=== PATIENT | female | born 1940 | race Caucasian/White ===

== ENCOUNTER 2019-08-13 17:59 | Outpatient (CLI) | payer MEDICARE, MEDICAID | END 2019-08-13 18:00 | disposition critical access hospital (66) | LOC: EMS 17:59 | PROVIDERS: ATTEND Surgery | DX: S09.90XA Unspecified injury of head, initial encounter (principal); X58.XXXA Exposure to other specified factors, initial encounter; Y92.099 Unspecified place in other non-institutional residence as the place of occurrence of the external cause | CPT/HCPCS: A0425; A0429 ==

== ENCOUNTER 2019-08-13 18:17 | Emergency (ER) | payer MEDICARE, MEDICAID ==
[2019-08-13 18:35] VITALS: BP 143/71
--- NOTE | 2019-08-13 18:48 | ED Physician Documentation ---
History of Present Illness - Stated complaint Stated Complaint: GLF - Chief complaint Chief Complaint: Trauma Hd/Nk - History obtained from History obtained from: Other ([facility]) - History of Present Illness Timing: Prior to arrival, Unknown - Additonal information Additional information: 79-year-old female presents to the emergency department from her care facility after the staff noticed today that she has bruising around her left eye and a very large scalp hematoma. Patient has a history of dementia. At baseline she is often nonsensical.It is unknown when patient developed the facial trauma. In review of the chart patient appears to be a DNR with comfort care measures only.Patient is not anticoagulated. Her most significant medications include loperamide and Seroquel only. History is difficult to elicit from the patient. She is placed in the ED hallway in a chair as she wanders without supervision. Review of Systems Unable to obtain: Other (Review of systems difficult to obtain. History obtained from care facility notes which indicate an unwitnessed fall as evidenced by scalp hematoma and left periorbital bruising. Patient is non- participatory in ROS secondary to dementia) Skin: reports: Other (left scalp hematoma; left carmita-ocular bruising) Endocrine: reports: Other (baselien dementia) PD PAST MEDICAL HISTORY - Allergies Allergies/Adverse Reactions: Allergies Allergy/AdvReac Type Severity Reaction Status Date / Time codeine Allergy Unknown Verified 08/13/19 18:36 PD ED PE EXPANDED - General General: Alert, No acute distress, Other (in wheel chair in ED hallway) - HEENT HEENT: PERRL, Ears normal (No hemotympanum. No fluid draining from either ear canal. No fluid draining from the nares), Other (Large left parietal scalp hematoma 4 x 3 cm.Ecchymosis surrounding the left orbital socket. The patient cannot participate in gaze follow she does not have appear to have ocular entrapment. No tenderness elicited with mild palpation of the orbital frame.) - Neck Neck: Other (moves neck normally in all planes) - Cardiac Cardiac: Regular Rate, Radial strong equal - Respiratory Respiratory: Clear to ausultation clotilde. No: Distress, Labored - Abdomen Abdomen: No: Tender to palpation - Derm Derm: Normal color, Warm and dry, Other (large hematoma left parietal scalo; bruising left orbit of eye) - Neuro Neuro: Confused, Normal motor (Demented at baseline. Gross motor movements of the arms and legs appear intact. Air [place] Driller equal bilaterally.No facial asymmetry or droop. Speech is clear. Patient cannot participate in the cerebellar or cerebral exam.) - GCS Eye Opening: Spontaneous Motor: Obeys Commands Verbal: Confused Total: 14 Results - Vitals Vitals: Vital Signs - 24 hr 08/13/19 18:19 Temperature 36.3 C L Heart Rate 73 Respiratory 18 Rate Blood Pressure 143/71 H O2 Saturation 98 Oxygen O2 Source Room air - Rads (name of study) CT head w/o Radiology: Final report received (No acute intracranial findings. Large left frontal subgaleal hematoma without underlying calvarial abnormality. Minimally displaced fracture of the left medial orbital wall with trace adjacent hematoma.) PD MEDICAL DECISION MAKING - ED course Complexity details: reviewed old records, reviewed results ED course: 79-year-old female presents to the emergency department for evaluation of a scalp and facial hematoma following a likely unwitnessed fall at her care fa [facility]. - Patient is DNR comfort care measures only. - Head CT Shows a large left frontal subgaleal hematoma without underlying calvarial allergy. There is a very minimally displaced fracture of the left medial orbital wall with trace adjacent hematoma.No intraconal or intra-orbital hematoma. - Though there is a minimally displaced orbital fracture she shows no signs of ocular entrapment. Given patient's age DNR and comfort status it is unlikely that anybody would attempt any surgical correction of this minimal displacement. - Patient will be transported back to [facility] via BLS. In reviewing chart notes and the notes from [place] patient does appear to be at her baseline mentation. Her vitals have been stable. Departure - Departure Disposition: 01 Home, Self Care Clinical Impression: Subgaleal hemorrhage Orbital fracture Qualifiers: Encounter type: initial encounter Fracture type: closed Qualified Code(s): S02.85XA - Fracture of orbit, unspecified, initial encounter for closed fracture Fall Qualifiers: Encounter type: initial encounter Qualified Code(s): W19.XXXA - Unspecified fall, initial encounter Condition: Stable Instructions: ED Head Injury Closed Ch Comments: The CT of her head shows no acute intracranial findings. There is a large subgaleal hematoma. This will simply resolve with time. Please place cool compress on her head to help reduce swelling. The CT also showed a very minimally displaced left medial orbital wall fracture. However this is too small for any surgical intervention. It also does not look like Patricia has any entrapment of her eye movement. Please continue to monitor her closely over the next 24 to 72 hours. If she becomes confused, agitated, has fevers, then return to the emergency department for further evaluation.
--- NOTE | 2019-08-13 19:33 | CT Report ---
PROCEDURE: HEAD WO INDICATIONS: unwitness fall with ocular bruising and scalp shawanda TECHNIQUE: Noncontrast 4.5 mm thick angled axial sections acquired from the foramen magnum to the vertex. For r adiation dose reduction, the following was used: automated exposure control, adjustment of mA and/or kV according to patient size. COMPARISON: None. FINDINGS: Image quality: Motion artifact limits evaluation. CSF spaces: Basal cisterns are patent. No extra-axial fluid collections. Ventricles are normal in size and shape. Brain: No midline shift. No intracranial masses or hemorrhage. Asif-white matter interface is norm al. Skull and face: There is a large subgaleal hematoma over the left frontal bone. The underlying christian rium is intact. There is likely a minimally displaced fracture through the medial orbital wall (serie s 4/image 4). A small hematoma may be present in this region. No intraconal or intraorbital hematoma. A small osteoma is present at the vertex. Sinuses: Visualized sinuses and mastoids are clear. IMPRESSION: 1. No acute intracranial findings. 2. Minimally displaced fracture of the left medial orbital wall with trace adjacent hematoma. No intr aconal or intraorbital hematoma. 3. Large left frontal subgaleal hematoma without underlying calvarial abnormality. 4. Findings likely associated with chronic microvascular ischemic changes. Reviewed by: Rahel Bui MD on 08/13/2019 7:32 PM PDT Approved by: aRhel Bui MD on 08/13/2019 7:32 PM PDT Station ID: [id number]
== END 2019-08-13 20:31 | disposition home or self-care (01) ==
LOC: ED 18:17
DX: S06.300A Unspecified focal traumatic brain injury without loss of consciousness, initial encounter (principal); S02.832A Fracture of medial orbital wall, left side, initial encounter for closed fracture; W18.30XA Fall on same level, unspecified, initial encounter; Y92.129 Unspecified place in nursing home as the place of occurrence of the external cause; F03.90 Unspecified dementia, unspecified severity, without behavioral disturbance, psychotic disturbance, mood disturbance, and anxiety; Z91.83 Wandering in diseases classified elsewhere; Z66 Do not resuscitate
CPT/HCPCS: 70450; 99281; 99284

== ENCOUNTER 2019-08-13 20:16 | Outpatient (CLI) | payer MEDICARE, MEDICAID | END 2019-08-13 20:17 | disposition home or self-care (01) | LOC: EMS 20:16 | PROVIDERS: ATTEND Surgery | DX: S02.85XA Fracture of orbit, unspecified, initial encounter for closed fracture (principal); H57.89 Other specified disorders of eye and adnexa; R41.0 Disorientation, unspecified; W18.30XA Fall on same level, unspecified, initial encounter | CPT/HCPCS: A0425; A0429 ==

== ENCOUNTER 2019-10-11 00:25 | Outpatient (CLI) | payer MEDICARE, MEDICAID | END 2019-10-11 00:26 | disposition critical access hospital (66) | LOC: EMS 00:25 | PROVIDERS: ATTEND Surgery | DX: M25.511 Pain in right shoulder (principal); W07.XXXA Fall from chair, initial encounter; Y92.099 Unspecified place in other non-institutional residence as the place of occurrence of the external cause | CPT/HCPCS: A0425; A0429 ==

== ENCOUNTER 2019-10-11 00:42 | Emergency (ER) | payer MEDICARE, MEDICAID ==
--- NOTE | 2019-10-11 00:38 | ED Physician Documentation ---
History of Present Illness - Stated complaint Stated Complaint: GLF - History obtained from History obtained from: EMS - Additonal information Additional information: Patient is a 79-year-old female with baseline dementia and Parkinson's is a DNR and comfort care only tonight she was sitting in her chair and she had a witnessed fall where she landed on her right shoulder without injury to her head or neck not anticoagulated patient complains of right shoulder pain and denies any other complaints. Review of Systems Unable to obtain: Dementia PD PAST MEDICAL HISTORY - Allergies Allergies/Adverse Reactions: Allergies Allergy/AdvReac Type Severity Reaction Status Date / Time codeine Allergy Unknown Verified 10/11/19 00:49 PD ED PE NORMAL - Vitals Vital signs reviewed: Yes - General General: No acute distress, Well developed/nourished, Other (Pleasantly demented 79-year-old female in no apparent distress) - HEENT HEENT: PERRL - Neck Neck: Supple, no meningeal sign - Cardiac Cardiac: RRR, No murmur - Respiratory Respiratory: Clear bilaterally - Abdomen Abdomen: Normal bowel sounds, Soft, Non tender, Non distended - Derm Derm: Warm and dry - Extremities Extremities: No deformity, Other (Tenderness over the right proximal shoulder & distal clavicle. no gross deformity negative sulcus sign compartments are soft neurovascularly intact radian, median ulnar motor and sensory exam are intact. Strength is 5 out of 5 able to flex and extend at the shoulder joint) - Neuro Neuro: Other (No new gross neurological deficit no facial droop no unilateral weakness.) - Psych Psych: Normal mood, Normal affect Results - Vitals Vitals: Vital Signs - 24 hr 10/11/19 00:49 Temperature 36.4 C L Heart Rate 70 Respiratory 18 Rate Blood Pressure 137/73 H O2 Saturation 98 Oxygen O2 Source Room air PD MEDICAL DECISION MAKING - ED course Complexity details: considered differential (clavicle fracture) Departure - Departure Disposition: 01 Home, Self Care Clinical Impression: Right clavicle fracture Qualifiers: Encounter type: initial encounter Clavicle location: lateral end Fracture type: closed Fracture alignment: displaced Qualified Code(s): S42.031A - Displaced fracture of lateral end of right clavicle, initial encounter for closed fracture Condition: Stable Instructions: ED Fx Clavicle Follow-Up: Oziel Haro MD [Provider Admit Priv/Credential] - 08/31/20 Comments: keep right arm in sling. follow up with your pcp and ortho next week. ice as needed. take ibuprofen or tylenol as needed for pain.
[2019-10-11 01:52] VITALS: BP 130/61
--- NOTE | 2019-10-11 08:10 | XRAY Report ---
PROCEDURE: Shoulder 3 View RT INDICATIONS: fall shoulder pain TECHNIQUE: 4 views of the shoulder were acquired. COMPARISON: None. FINDINGS: Bones: Distal right clavicular fracture with apex superior angulation of the distal fracture fragment . Glenohumeral alignment appears intact. No suspicious bony lesions. Visualized ribs appear intact. Soft tissues: No suspicious soft tissue calcifications. IMPRESSION: Distal right clavicular fracture. No significant discrepancy with initial interpretation by overnight radiologist. Reviewed by: Deon Uamña MD on 10/11/2019 8:09 AM PDT Approved by: Deon Umaña MD on 10/11/2019 8:09 AM PDT Station ID: [id number]
--- NOTE | 2019-10-11 08:11 | XRAY Report ---
PROCEDURE: Humerus RT INDICATIONS: right arm pain TECHNIQUE: AP and lateral views of the humerus were acquired. COMPARISON: None. FINDINGS: Bones: Distal right clavicle fracture. No fractures or dislocations of the right humerus. No suspic ious bony lesions. Soft tissues: No suspicious soft tissue calcifications. IMPRESSION: Distal right clavicular fracture. Right humerus without acute osseous abnormalities. Reviewed by: Deon Umaña MD on 10/11/2019 8:10 AM PDT Approved by: Deon Umaña MD on 10/11/2019 8:10 AM PDT Station ID: [id number]
== END 2019-10-11 02:26 | disposition home or self-care (01) ==
LOC: EDUNIT# → ED 00:42
DX: S42.031A Displaced fracture of lateral end of right clavicle, initial encounter for closed fracture (principal); W07.XXXA Fall from chair, initial encounter; Y92.129 Unspecified place in nursing home as the place of occurrence of the external cause; G20 Parkinson's disease; F02.80 Dementia in other diseases classified elsewhere, unspecified severity, without behavioral disturbance, psychotic disturbance, mood disturbance, and anxiety; Z66 Do not resuscitate
CPT/HCPCS: 99281; 99283

== ENCOUNTER 2021-09-13 16:34 | Emergency (ER) | payer MEDICARE, MEDICAID ==
[2021-09-13] MEDS ORDERED: TETANUS/DIPHTHERIA/PERTUSSIS 0.5 ML SYRINGE IM ONE (16:40)
--- NOTE | 2021-09-13 16:41 | ED Physician Documentation ---
History of Present Illness - Stated complaint Stated Complaint: GLF/BUMP - History obtained from History obtained from: Patient, EMS - Additonal information Additional information: This is a demented 81-year-old woman brought in by ambulance as she fell out of bed this morning. She lives at a memory care facility and reportedly fell out of bed between 4 and 5 AM sustaining a lack on the vertex. She is comfort care only. Patient is unable to state if she has any complaints. She does seem happy though and has a stuffed cat in her arms. Review of Systems Unable to obtain: Confused PD PAST MEDICAL HISTORY - Past Medical History Neuro: Dementia - Past Surgical History Past Surgical History: No - Present Medications Home Medications: Ambulatory Orders Medication Instructions Recorded Confirmed Acetaminophen [Tylenol] 650 mg PO Q6H PRN 09/13/21 09/13/21 Bisacodyl Supp [Dulcolax Supp] 10 mg DE DAILY PRN 09/13/21 09/13/21 Loperamide [Imodium] 2 mg PO QID PRN 09/13/21 09/13/21 Magnesium Hydroxide [Milk of 30 ml PO DAILY PRN 09/13/21 09/13/21 Magnesia] QUEtiapine [SEROquel] 25 mg PO BID 09/13/21 09/13/21 QUEtiapine [SEROquel] 25 mg PO DAILY PRN 09/13/21 09/13/21 Sennosides/Docusate Sodium [Senna 1 each PO DAILY 09/13/21 09/13/21 Plus 8.6-50 mg Softgel] - Allergies Allergies/Adverse Reactions: Allergies Allergy/AdvReac Type Severity Reaction Status Date / Time codeine Allergy Unknown Verified 10/11/19 00:49 - Social History Does the pt smoke?: No Smoking Status: Never smoker Does the pt drink ETOH?: No Does the pt have substance abuse?: No - Immunizations Immunizations are current?: Yes - POLST Patient has POLST: No PD ED PE NORMAL - Vitals Vital signs reviewed: Yes - General General: Other (Alert and oriented to person but not place or time) - HEENT HEENT: Other (Already healing laceration to the right side of the vertex of the scalp. Note made that the left lens is opacified and that pupil is minimally reactive. Looks like a chronic process.) - Neck Neck: Supple, no meningeal sign, No bony TTP - Neuro Eye Opening: Spontaneous Motor: Obeys Commands Verbal: Confused GCS Score: 14 Results - Vitals Vitals: Vital Signs - 24 hr 09/13/21 09/13/21 16:37 18:32 Temperature 37 C Heart Rate 71 59 L Respiratory 14 18 Rate Blood Pressure 145/83 H 122/102 H O2 Saturation 97 99 Oxygen O2 Source Room air PD MEDICAL DECISION MAKING - ED course ED course: 81-year-old with dementia fell last night and hit her head. She has a laceration on the top of the head. She is comfort care only but brought in for evaluation. CT imaging of the head and neck was without acute change, the laceration is already healing and does not require specific therapy. Departure - Departure Disposition: 01 Home, Self Care Clinical Impression: Head injury Qualifiers: Encounter type: initial encounter Qualified Code(s): S09.90XA - Unspecified injury of head, initial encounter Dementia Qualifiers: Dementia type: unspecified type Dementia behavioral disturbance: without behavioral disturbance Qualified Code(s): F03.90 - Unspecified dementia without behavioral disturbance Scalp laceration Qualifiers: Encounter type: initial encounter Qualified Code(s): S01.01XA - Laceration without foreign body of scalp, initial encounter Condition: Good Record reviewed to determine appropriate education?: Yes Instructions: ED Dementia Caregiver Support, ED Head Injury Closed Comments: She was seen for scalp laceration, that laceration is small and already healing. Soap and water and routine cleansing is fine without other specific wound care is acceptable. CT of the head and C-spine were negative. Return for new or worsening symptoms.
[2021-09-13] MEDS ORDERED: MIDAZOLAM 2 MG/2 ML VIAL IM STA (17:52)
[2021-09-13 18:32] VITALS: BP 122/102
--- NOTE | 2021-09-13 18:40 | CT Report ---
PROCEDURE: HEAD WO INDICATIONS: head injury TECHNIQUE: Noncontrast 4.5 mm thick angled axial sections acquired from the foramen magnum to the vertex. For r adiation dose reduction, the following was used: automated exposure control, adjustment of mA and/or kV according to patient size. COMPARISON: 08/13/2019. Correlation is also made with the coming cervical spine CT, 09/13/2021. FINDINGS: Image quality: Excellent. CSF spaces: Basal cisterns are patent. No extra-axial fluid collections. Ventricles are normal in size and shape. Brain: No midline shift. No intracranial masses or hemorrhage. Asif-white matter interface is norm al. Age-appropriate brain parenchymal volume loss and chronic small vessel ischemic change can be se en. Skull and face: Calvarium and visualized facial bones are intact, without suspicious lesions. 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 Sinuses: Visualized sinuses and mastoids are clear. IMPRESSION: No intracranial hemorrhage is seen. No significant intracranial abnormality is seen. Reviewed by: Ata Almaraz MD on 09/13/2021 6:38 PM PDT Approved by: Ata Almaraz MD on 09/13/2021 6:38 PM PDT Station ID: [id number]
--- NOTE | 2021-09-13 18:41 | CT Report ---
PROCEDURE: CERVICAL SPINE WO INDICATIONS: head injury TECHNIQUE: Noncontrast 3 mm thick sections acquired from the skull base to the T4 level. Sagittal and coronal r eformats were then constructed. For radiation dose reduction, the following was used: automated exp osure control, adjustment of mA and/or kV according to patient size. COMPARISON: Correlation is made with the accompanying head CT, 09/13/2021. FINDINGS: Image quality: Excellent. Bones: No fractures or dislocations. Visualized superior ribs are intact. Degenerative changes are seen throughout, with at least moderate disc space narrowing seen at C3-C4, C4-C5, C5-C6, C6-C7, and within the visualized upper cervical spine. Soft tissues: Prevertebral soft tissues are normal in thickness. No paravertebral hematomas. No ap ical pneumothoraces. Emphysematous changes can be seen at the lung apices. IMPRESSION: No displaced fracture can be seen. Relatively prominent degenerative changes are seen. Reviewed by: Ata Almaraz MD on 09/13/2021 6:39 PM PDT Approved by: Ata Almaraz MD on 09/13/2021 6:39 PM PDT Station ID: [id number]
== END 2021-09-13 19:40 | disposition home or self-care (01) ==
LOC: EDUNIT# → ED 16:34
DX: S01.01XA Laceration without foreign body of scalp, initial encounter (principal); W06.XXXA Fall from bed, initial encounter; Y92.099 Unspecified place in other non-institutional residence as the place of occurrence of the external cause; F03.90 Unspecified dementia, unspecified severity, without behavioral disturbance, psychotic disturbance, mood disturbance, and anxiety; Z23 Encounter for immunization; Z71.85 Encounter for immunization safety counseling
CPT/HCPCS: 90471; 96372; 99281; 99284

== ENCOUNTER 2022-05-19 06:52 | Outpatient (CLI) | payer MEDICARE, MEDICAID | END 2022-05-19 06:53 | disposition left against medical advice (07) | LOC: EMS 06:52 | DX: R62.7 Adult failure to thrive (principal); I95.9 Hypotension, unspecified; R63.8 Other symptoms and signs concerning food and fluid intake; R46.4 Slowness and poor responsiveness; R53.83 Other fatigue ==

== ENCOUNTER 2022-05-20 12:28 | Outpatient (CLI) | payer MEDICARE, MEDICAID | END 2022-05-20 12:29 | disposition critical access hospital (66) | LOC: EMS 12:28 | DX: R40.0 Somnolence (principal); R39.89 Other symptoms and signs involving the genitourinary system; R63.8 Other symptoms and signs concerning food and fluid intake; R50.9 Fever, unspecified | CPT/HCPCS: A0425; A0427 ==

== ENCOUNTER 2022-05-20 12:43 | Inpatient (IN) | payer MEDICARE, MEDICAID ==
[2022-05-20] MEDS ORDERED: ALBUTEROL NEB 2.5 MG/3 ML INH STA (12:57)
[2022-05-20] MEDS ORDERED: ACETAMINOPHEN 325 MG TABLET PO STA (13:01)
[2022-05-20] MEDS ORDERED: SODIUM CHLORIDE 0.9% 1,000 ML IV STA (13:01)
[2022-05-20 13:19] LABS: BILIRUBIN,URINE NEGATIVE (NEGATIVE); CLARITY,URINE SL. CLOUDY (CLEAR); GLUCOSE, URINE (UA) NEGATIVE (NEGATIVE); KETONES,URINE (UA) NEGATIVE (NEGATIVE); LEUKOCYTE ESTERASE, URINE TRACE (NEGATIVE); NITRITE,URINE POSITIVE (NEGATIVE); OCCULT BLOOD,URINE SMALL (NEGATIVE); PH,URINE 5.5 PH (5.0-7.5); PROTEIN,URINE TRACE mg/dL (NEGATIVE); UROBILINOGEN,URINE 0.2 (NORMAL) E.U./dL (NORMAL)
[2022-05-20 13:25] LABS: BACTERIA,URINE Moderate /HPF (None Seen); SQUAMOUS EPITHELIAL CELL,UR RARE Squamous (<= Few)
--- NOTE | 2022-05-20 13:28 | XRAY Report ---
PROCEDURE: Chest 1 View X-Ray INDICATIONS: chest pain TECHNIQUE: One view of the chest was acquired. COMPARISON: None. FINDINGS: Surgical changes and devices: None. Lungs and pleura: No pleural effusions or pneumothorax. Mild interstitial pulmonary edema. Mediastinum: Mediastinal contours appear normal. Mild cardiomegaly. Bones and chest wall: No suspicious bony lesions. Overlying soft tissues appear unremarkable. IMPRESSION: Mild congestive heart failure exacerbation. Reviewed by: John Rao MD on 05/20/2022 1:26 PM PDT Approved by: John Rao MD on 05/20/2022 1:26 PM PDT Station ID: [id number]
[2022-05-20 13:31] LABS: EOSINOPHILS % (AUTO) 0.1 %; HCT - HEMATOCRIT 39.5 % (37.0-47.0); HGB - HEMOGLOBIN 12.9 g/dL (12.0-16.0); LYMPHOCYTES % (AUTO) 1.4 %; MEAN CORPUSCULAR HEMOGLOBIN 31.2 pg (27.0-31.0); MEAN CORPUSCULAR HGB CONC 32.7 g/dL (32.0-36.0); MEAN CORPUSCULAR VOLUME 95.6 fL (81.0-99.0); MEAN PLATELET VOLUME 9.8 fL (7.9-10.8); MONOCYTES % (AUTO) 1.8 %; NEUTROPHILS % (AUTO) 95.2 %; PLT - PLATELET COUNT 77 10^3/uL (130-450); RED BLOOD COUNT 4.13 10^6/uL (4.20-5.40); RED CELL DISTRIBUTION WIDTH 13.3 % (12.0-15.0); WHITE BLOOD COUNT 8.4 x10^3/uL (4.8-10.8)
[2022-05-20 13:34] LABS: ABNORMAL LYMPHS % (MANUAL) 0 %
[2022-05-20 13:42] LABS: ALBUMIN/GLOBULIN RATIO 0.9 (1.0-2.2); BILIRUBIN,TOTAL 0.7 mg/dL (0.2-1.0); CREATININE 1.8 mg/dL (0.4-1.0); POTASSIUM 3.6 mmol/L (3.5-5.0); TOTAL PROTEIN 6.4 g/dL (6.7-8.2)
[2022-05-20] MEDS ORDERED: ACETAMINOPHEN 1,000 MG/100 ML 1,000 MG/100 ML BAG IV ONE (13:51)
--- NOTE | 2022-05-20 13:51 | ED Physician Documentation ---
PD HPI ALTERED MENTAL STATUS - Stated complaint Stated Complaint: FEVER - Chief complaint Chief Complaint: Fever - History obtained from History obtained from: Patient, EMS, Caregiver - History of Present Illness Timing - onset: How many days ago (2-3) Timing - duration: Days (2) Timing - details: Gradual onset, Still present Quality / character: Less responsive (Report from EMS is [facility] states she is typically ambulatory and interacts. Patient has been less responsive and energetic and not wanting to eat since 2-3 days. Concern for infection. Onset fevers last night. Caregivers called the family who did want the patient brought in.), Confused (dementia at baseline). No: Agitated, Combative Associated symptoms: Fever Contributing factors: Recent illness (presume infection with fevers onset last night.). No: Recent med change Basline status: Ambulatory, Confused (mostly forgetful per daughter.), Disoriented, residential facility. No: Diminished alertness Treatment VEHICLE TECHNICIAN: Accucheck Similar symptoms before: Has not had sx before Review of Systems Unable to obtain: AMS, Dementia, Other (info from care facility through EMS.) Constitutional: reports: Fever Respiratory: denies: Cough GI: denies: Vomiting, Diarrhea : reports: Incontinent (chronic) Neurologic: reports: Generalized weakness, Altered mental status (less interactive and not wanting to eat/drink today.) PD PAST MEDICAL HISTORY - Past Medical History Past Medical History: Yes Cardiovascular: None Respiratory: None Neuro: Dementia Endocrine/Autoimmune: None - Past Surgical History Past Surgical History: No - Present Medications Home Medications: Ambulatory Orders Medication Instructions Recorded Confirmed Acetaminophen [Tylenol] 650 mg PO Q6H PRN 09/13/21 05/20/22 Bisacodyl Supp [Dulcolax Supp] 10 mg [place] DAILY PRN 09/13/21 05/20/22 Loperamide [Imodium] 2 mg PO QID PRN 09/13/21 09/13/21 Magnesium Hydroxide [Milk of 30 ml PO DAILY PRN 09/13/21 09/13/21 Magnesia] QUEtiapine [SEROquel] 25 mg PO BID 09/13/21 05/20/22 QUEtiapine [SEROquel] 25 mg PO DAILY PRN 09/13/21 09/13/21 Mag Hydrox/Al Hydrox/Simeth 30 ml PO Q4H PRN 05/20/22 05/20/22 [Mylanta Plus] Senna [Senokot] 17.2 mg PO DAILY 05/20/22 05/20/22 Sennosides [Senna] 8.6 mg PO DAILY PM 05/20/22 05/20/22 acetaZOLAMIDE [Diamox] 250 mg PO TID 05/20/22 05/20/22 - Allergies Allergies/Adverse Reactions: Allergies Allergy/AdvReac Type Severity Reaction Status Date / Time codeine Allergy Unknown Verified 05/20/22 12:58 - Living Situation Living Situation: reports: Alone, Other (family in the area are estranged and don't visit patient very much.) Living Arrangement: reports: [facility] - Social History Does the pt smoke?: No Smoking Status: Never smoker Does the pt drink ETOH?: No Does the pt have substance abuse?: No - Immunizations Immunizations are current?: Yes - POLST Patient has POLST: No PD ED PE NORMAL - Vitals Vital signs reviewed: Yes - General General: Well developed/nourished, Other (rather blank look when asked questions. not responding verbally. Looking around with head moving readily.) - HEENT HEENT: Atraumatic - Neck Neck: Supple, no meningeal sign, No adenopathy - Cardiac Cardiac: No murmur. No: RRR (regular but tachycardic) - Respiratory Respiratory: No respiratory distress, Other (has diffuse exp wheezing noted. No crackles. ) - Abdomen Abdomen: Soft, Non tender, Non distended - Rectal Rectal: Other (patient wearing depends. Brown stool in depends. Does not appear melanotic. no obvious rash. nursing will clean up and advise me. ) - Derm Derm: Normal color, Warm and dry - Extremities Extremities: No edema, No calf tenderness / cord - Neuro Neuro: No motor deficit, No sensory deficit (responds to tactile touch on extremities. ) Results - Vitals Vitals: Vital Signs - 24 hr 05/20/22 05/20/22 05/20/22 12:53 14:17 17:00 Temperature 37.9 C 36.5 C Heart Rate 110 H 105 H 114 H Respiratory 20 22 20 Rate Blood Pressure 124/89 H 116/80 105/72 O2 Saturation 91 L 91 L 93 If not protocol 3 : Oxygen Flow, liters/minute 05/20/22 18:28 Temperature Heart Rate 102 H Respiratory 19 Rate Blood Pressure 97/64 O2 Saturation 93 If not protocol 3 : Oxygen Flow, liters/minute Oxygen O2 Source Nasal cannula - Labs Labs: Laboratory Tests 05/20/22 05/20/22 05/20/22 13:08 13:10 13:23 WBC 8.4 RBC 4.13 L Hgb 12.9 Hct 39.5 MCV 95.6 MCH 31.2 H MCHC 32.7 RDW 13.3 Plt Count 77 L MPV 9.8 Neut # (Auto) Not Reportable Lymph # (Auto) Not Reportable [place] # (Auto) Not Reportable Eos # (Auto) Not Reportable Baso # (Auto) Not Reportable Absolute Nucleated RBC Not Reportable Total Counted 100 Band Neuts % (Manual) 9 Abnorm Lymph % (Manual) 0 Metamyelocytes % 2 H Nucleated RBC % Not Reportable Neutrophils # (Manual) 7.1 H Lymphocytes # (Manual) 0.2 L Monocytes # (Manual) 0.8 Eosinophils # (Manual) 0.1 Basophils # (Manual) 0.0 Differential Comment MANUAL DIFFERENTIAL Platelet Estimate DECREASED (<130,000) Platelet Morphology NORMAL APPEARANCE RBC Morph Micro Appear NORMAL APPEARANCE Sodium Potassium Chloride Carbon Dioxide Anion Gap BUN Creatinine Estimated GFR (MDRD) Glucose Lactic Acid Calcium Total Bilirubin AST ALT Alkaline Phosphatase B-Natriuretic Peptide Total Protein Albumin Globulin Albumin/Globulin Ratio Lipase Urine Color YELLOW Urine Clarity SL. CLOUDY Urine pH 5.5 Ur Specific [place] 1.020 Urine Protein TRACE Urine Glucose (UA) NEGATIVE Urine Ketones NEGATIVE Urine Occult Blood SMALL H Urine Nitrite POSITIVE H Urine Bilirubin NEGATIVE Urine Urobilinogen 0.2 (NORMAL) Ur Leukocyte Esterase TRACE H Urine RBC 11-25 H Urine WBC 11-25 H Ur Squamous Epith Cells RARE Squamous Urine Bacteria Moderate H Ur Microscopic Review INDICATED Urine Culture Comments INDICATED Nasal Adenovirus (PCR) NOT DETECTED Nasal B. parapertussis DNA (PCR) NOT DETECTED Nasal Coronavir 229E PCR NOT DETECTED Nasal Coronavir HKU1 PCR NOT DETECTED Nasal Coronavir NL63 PCR NOT DETECTED Nasal Coronavir OC43 PCR NOT DETECTED Nasal Enterovir/Rhinovir PCR NOT DETECTED Nasal Influenza B PCR NOT DETECTED Nasal Influenza A PCR NOT DETECTED Nasal Parainfluen 1 PCR NOT DETECTED Nasal Parainfluen 2 PCR NOT DETECTED Nasal Parainfluen 3 PCR NOT DETECTED Nasal Parainfluen 4 PCR NOT DETECTED Nasal RSV (PCR) NOT DETECTED Nasal B.pertussis DNA PCR NOT DETECTED Nasal C.pneumoniae (PCR) NOT DETECTED Clement Human Metapneumo PCR NOT DETECTED Nasal M.pneumoniae (PCR) NOT DETECTED Nasal SARS-CoV-2 (PCR) NOT DETECTED 05/20/22 05/20/22 05/20/22 13:23 13:23 13:23 WBC RBC Hgb Hct MCV MCH MCHC RDW Plt Count MPV Neut # (Auto) Lymph # (Auto) [place] # (Auto) Eos # (Auto) Baso # (Auto) Absolute Nucleated RBC Total Counted Band Neuts % (Manual) Abnorm Lymph % (Manual) Metamyelocytes % Nucleated RBC % Neutrophils # (Manual) Lymphocytes # (Manual) Monocytes # (Manual) Eosinophils # (Manual) Basophils # (Manual) Differential Comment Platelet Estimate Platelet Morphology RBC Morph Micro Appear Sodium 143 Potassium 3.6 Chloride 113 H Carbon Dioxide 22 Anion Gap 8.0 BUN 59 H Creatinine 1.8 H Estimated GFR (MDRD) 27 L Glucose 85 Lactic Acid 1.9 Calcium 8.0 L Total Bilirubin 0.7 AST 72 H ALT 49 Alkaline Phosphatase 177 H B-Natriuretic Peptide 348 H Total Protein 6.4 L Albumin 3.0 L Globulin 3.4 Albumin/Globulin Ratio 0.9 L Lipase 22 Urine Color Urine Clarity Urine pH Ur Specific [place] Urine Protein Urine Glucose (UA) Urine Ketones Urine Occult Blood Urine Nitrite Urine Bilirubin Urine Urobilinogen Ur Leukocyte Esterase Urine RBC Urine WBC Ur Squamous Epith Cells Urine Bacteria Ur Microscopic Review Urine Culture Comments Nasal Adenovirus (PCR) Nasal B. parapertussis DNA (PCR) Nasal Coronavir 229E PCR Nasal Coronavir HKU1 PCR Nasal Coronavir NL63 PCR Nasal Coronavir OC43 PCR Nasal Enterovir/Rhinovir PCR Nasal Influenza B PCR Nasal Influenza A PCR Nasal Parainfluen 1 PCR Nasal Parainfluen 2 PCR Nasal Parainfluen 3 PCR Nasal Parainfluen 4 PCR Nasal RSV (PCR) Nasal B.pertussis DNA PCR Nasal C.pneumoniae (PCR) Clement Human Metapneumo PCR Nasal M.pneumoniae (PCR) Nasal SARS-CoV-2 (PCR) - Rads (name of study) chest xray Relevant Findings:: Prelim report reviewed, EMP independent interpretation of test (no infiltrates. some vascular prominence. consider mild chf.), See rad report PD Medical Decision Making - ED course Complexity details: reviewed results, d/w family (I talked with her daughter who would like to provide fluids and antibiotics and see the improvement. Comfort focused treatment and short-term antibiotic intervention.), d/w crm consultant (I talked with the hospitalist who agrees the patient can be treated in the hospital.) Reviewed Lab Results: The patient's urine is positive for urinary tract infection with positive nitrites and bacteria and white cells. This was a cath urine. Chest x-ray shows some diffuse interstitial vascularity but no infiltrates. White count is normal at 8. Lactate is not elevated at 1.9. Her respiratory PCR panel is negative. She does have some congestion and wheezing - consider some viral URI vs mild chf. only source verifiable for infection is UTI. Departure - Departure Disposition: ED Place in Observation Clinical Impression: AMS (altered mental status), UTI (urinary tract infection), Tachycardia Condition: Stable Record reviewed to determine appropriate education?: Yes Discharge Date/Time: 05/20/22 19:02
[2022-05-20 13:52] LABS: BAND NEUTROPHILS % (MANUAL) 9 %; DIFFERENTIAL COMMENT MANUAL DIFFERENTIAL; EOSINOPHILS # (MANUAL) 0.1 10^3/uL (0-0.7); LYMPHOCYTES # (MANUAL) 0.2 10^3/uL (1.5-3.5); LYMPHOCYTES % (MANUAL) 2 %; METAMYELOCYTES % (MANUAL) 2 %; MONOCYTES # (MANUAL) 0.8 10^3/uL (0.0-1.0); NEUTROPHILS # (MANUAL) 7.1 10^3/uL (1.5-6.6); PLATELET ESTIMATE, MANUAL DECREASED (<130,000) (NORMAL); PLATELET MORPHOLOGY NORMAL APPEARANCE (NORMAL); RBC MORPHOLOGY (MULTIPLE) NORMAL APPEARANCE (NORMAL)
[2022-05-20] MEDS ORDERED: cefTRIAXone 1 GM VIAL IVP STA (13:55)
[2022-05-20 14:35] LABS: B. PARAPERTUSSIS- RESP PCR PAN NOT DETECTED; B. PERTUSSIS- RESP PCR PANEL NOT DETECTED; C. PNEUMONIAE- RESP PCR PANEL NOT DETECTED; CORONAVIRUS 229E-RESP PCR NOT DETECTED; CORONAVIRUS HKU1-RESP PCR NOT DETECTED; CORONAVIRUS NL63-RESP PCR NOT DETECTED; CORONAVIRUS OC43-RESP PCR NOT DETECTED; HUMAN METAPNEUMOVIRUS NOT DETECTED; INFLUENZA A- RESP PCR PANEL NOT DETECTED; INFLUENZA B - RESP PCR PANEL NOT DETECTED; M. PNEUMONIAE- RESP PCR PANEL NOT DETECTED; PARAINFLUENZA VIRUS 1 NOT DETECTED; PARAINFLUENZA VIRUS 2 NOT DETECTED; PARAINFLUENZA VIRUS 3 NOT DETECTED; PARAINFLUENZA VIRUS 4 NOT DETECTED; RHINOVIRUS/ENTEROVIRUS NOT DETECTED; RSV- RESP PCR PANEL NOT DETECTED; SARS-CoV-2 -RESP PCR PANEL NOT DETECTED
--- NOTE | 2022-05-20 18:28 | HISTORY & PHYSICAL EXAMINATION ---
Chief Complaint - Chief Complaint Chief Complaint: AMS and fever at a memory care Shelter History of Present Illness - Admitted From Admitted From:: ED - History Obtained From History obtained from: ED provider - History of Present Illness HPI Comment/Other: This is an 82-year-old female with a history of dementia, on Seroquel. She lives in a memory care facility. She is normally interactive and walks and is independent. For the last 2 days she has been less interactive and eating and drinking less. Last night she had a fever of 101 Fahrenheit. This morning she was much less interactive and had nothing to eat or drink and was therefore sent to the ER from the memory residential. The patient was not febrile in our ED, but was found to have tachycardia, obtundation, a left shift on her CBC and abnormal urinalysis. The ED provider spoke to the daughter who reviewed that she did want treatment for her mother with IV fluids and antibiotics. There is an up coming appointment to have the pt start being followed with Palliative Care, the daughter said. The ED provider reached out to me on the Hospitalist team and we discussed this patient. The patient will be admitted to treat sepsis from a UTI. There is no PLST in the chart. The daughter does not want aggressive measures, comfort is the goal. Therefore CODE STATUS will be DNR. History - Past Medical History Neuro: reports: Dementia MRSA Hx?: No - Family & Social History Living arrangement: Assisted living Social History Notes: According to this EMR, there is no current smoking or alcohol use - Substance History Use: Uses substance without health or social issues: NONE - POLST Patient has POLST: No Meds/Allgy - Home Medications Home Medications: Ambulatory Orders Medication Instructions Recorded Confirmed Acetaminophen [Tylenol] 650 mg PO Q6H PRN 09/13/21 05/20/22 Loperamide [Imodium] 2 mg PO QID PRN 09/13/21 05/21/22 Magnesium Hydroxide [Milk of 30 ml PO DAILY PRN 09/13/21 05/21/22 Magnesia] QUEtiapine [SEROquel] 25 mg PO BID 09/13/21 05/20/22 acetaZOLAMIDE [Diamox] 250 mg PO TID 05/20/22 05/20/22 Sennosides/Docusate Sodium [Senna 1 tab PO DAILY PRN 05/21/22 05/21/22 Plus 8.6-50 mg Tablet] - Allergies Allergies/Adverse Reactions: Allergies Allergy/AdvReac Type Severity Reaction Status Date / Time codeine Allergy Unknown Verified 05/20/22 12:58 Review of Systems - Constitutional Constitutional: reports: Weakness, Poor appetite - Neurological Neurological: reports: Memory problems, Other (More sleepy and less interactive than) - All Other Systems All Other Systems: reports: Other (ROS is only obtained from the ED provider and chart notes.) Exam - Vital Signs Vital Signs: Vital Signs x48h Temp Pulse Resp BP Pulse Ox O2 Flow Rate 05/20/22 17:00 36.5 C 114 H 20 105/72 93 3 05/20/22 14:17 105 H 22 116/80 91 L 05/20/22 12:53 37.9 C 110 H 20 124/89 H 91 L - Physical Exam General Appearance: positive: No acute distress, Lethargic (Minimally winces to a sternal rub), Other (Cachectic, has sunken eyes and temporal wasting) Eyes Bilateral: positive: No lid inflammation ENT: positive: Dry mucous membranes, Other (Skin tenting present) Neck: positive: Nml inspection, No JVD Respiratory: positive: No respiratory distress, Breath sounds nml Cardiovascular: positive: Regular rate & rhythm, No murmur Abdomen: positive: Non-tender, No distention Skin: positive: Warm, Dry, Other ((+) tenting of skin) Extremities: positive: Non-tender, No pedal edema Neurologic/Psychiatric: positive: Other (Obtunded, only winces to sternal rub) Sepsis Event Note (H) - Evaluation Current Stage of Sepsis: Sepsis Possible source of Sepsis: positive: Genitourinary - Sepsis Criteria Sepsis Criteria: Recorded Heart Rate greater than 90 bpm, Respiratory: Increasing oxygen requirements, TRANSPORTATION CONSULTANT: altered consciousness (unrelated to primary neuro pathology), Hematologic: platelets < 100,000; INR > 1.5, or a PTT>60 seconds Conclusion/Plan - Problem List (1) Sepsis Conclusion/Plan: Patient has sepsis criteria including tachycardia, low platelet count of 77, new altered mental status on top of her usual mental w/ dementia, and a urinary tract infection source is apparent Plan: We will treat with IV fluids Begin empiric IV antibiotics Await blood and urine cultures to adjust antibiotics Anticipate that her new obtundation/altered mental status will improve with hydr ation and treating the infection, otherwise will do head CT (2) UTI (urinary tract infection) Conclusion/Plan: The patient had blood culture and urine culture sent off from the ED. I reviewed her urinalysis which is very abnormal normal showing WBCs and bacteria, nitrites and leukocyte esterase Plan: We will continue with IV empiric antibiotics using ceftriaxone Await urine and blood culture results to adjust her antibiotics (3) AMS (altered mental status) Conclusion/Plan: The patient is currently obtunded. She appears in no distress and is asleep, however she does not respond to sternal rub. We have only description of her behavior from the [facility], which was that she was interactive, talking, eating before 3 days ago. Therefore this is a significant change in her mental state Plan: Anticipate that her new obtundation/altered mental status will improve with hydration and treating the infection, otherwise will do head CT (4) Tachycardia Conclusion/Plan: 50Despite having no fever documented since being in our ED, she continues to be persistently tachycardic. This may be a result of volume depletion, pain or from possibly missing heart rate-slowing medications since she was not taking in her diet for 2-1/2 days Plan: We will place on telemetry We will order any of her usual heart rate-slowing medications if she has any, once her medication list is reconciled by our pharmacy (5) Dementia Conclusion/Plan: Plan: We will resume her Seroquel We will await for pharmacy to reconcile her entire medication list (6) Cachexia Conclusion/Plan: The patient has skin tenting and sunken eyes which could be consistent with dehydration from no oral intake for 3 days but appears to have underlying cachexia There is no POLST in the chart but the daughter's discussion with the ED provider indicated that no aggressive measures should be undertaken, comfort is the goal, daughter okayed IV fluids and IV antibiotics Plan: There is already a plan to have palliative care start seeing this patient going in the direction of hospice for end-of-life. - Lab Results Fish Bones: 05/21/22 09:04 05/21/22 09:04 - Diagnostic Imaging Results Diagnostic Imaging Results: positive: Final report reviewed - Other Other Results/Comments: Attestation: The patient is expected to be discharged or transferred to another facility within 96 hours: Yes.
[2022-05-20] MEDS ORDERED: ACETAMINOPHEN 325 MG TABLET PO PRN (18:29)
[2022-05-20] MEDS ORDERED: SODIUM CHLORIDE FLUSH 0.9% 10 ML SYRINGE IVP PRN (18:29)
[2022-05-20] MEDS ORDERED: ONDANSETRON 4 MG/2 ML VIAL IVP PRN (18:29)
[2022-05-20] MEDS ORDERED: MAG HYDROX/AL HYDROX/SIMETH 30 ML UDC PO PRN (18:30)
[2022-05-20] MEDS ORDERED: BISACODYL 10 MG SUPP PR PRN (18:30)
[2022-05-20] MEDS: DEXTROSE 5%-0.9% NACL 1,000 ML IV SCH (20:23)
[2022-05-20] MEDS: QUEtiapine 25 MG TABLET PO SCH (21:36)
[2022-05-20] MEDS: SENNA 8.6 MG TABLET PO SCH (21:36)
[2022-05-20] MEDS: SODIUM CHLORIDE FLUSH 0.9% 10 ML SYRINGE IVP SCH (23:27)
[2022-05-21] MEDS: DEXTROSE 5%-0.9% NACL 1,000 ML IV SCH ×2 (06:05→17:08)
[2022-05-21] MEDS: SODIUM CHLORIDE FLUSH 0.9% 10 ML SYRINGE IVP SCH ×2 (08:23→17:22)
[2022-05-21] MEDS: QUEtiapine 25 MG TABLET PO SCH ×2 (08:28→20:06)
--- NOTE | 2022-05-21 08:48 | PROVIDER PROGRESS NOTE ---
Assessment/Plan - Problem List (1) E coli bacteremia Assessment/Plan: Today 2 of 2 blood cultures have returned showing growth and the PCR identification shows E. coli Plan: Continue with ceftriaxone but will increase the dose from 1 g daily to 2 g daily (2) Sepsis Assessment/Plan: Patient had sepsis criteria including tachycardia, low platelet count of 77, new altered mental status on top of her usual mental w/ dementia, and a urinary tract infection source is apparent. Vital signs and labs are all reviewed. Today her tachycardia has gone, but her white blood count has worsened from 8.4, up to 18.2, Platelet count has worsened from 77 down to 46, and she is still severely obtunded Plan: We will repeat a lactic acid level (which was normal yesterday at admission) and will check for DIC by ordering a fibrinogen level, to see if she has worsening sepsis Continue to treat with IV fluids Continue empiric IV antibiotics Await blood and urine cultures to adjust antibiotics Anticipate that her new obtundation/altered mental status will improve with hydration and treating the infection, otherwise will do head CT (3) UTI (urinary tract infection) Conclusion/Plan: The patient had blood culture and urine culture sent off from the ED. I reviewed her urinalysis which is very abnormal normal showing WBCs and bacteria, nitrites and leukocyte esterase Plan: We will continue with IV empiric antibiotics using ceftriaxone Await urine and blood culture results to adjust her antibiotics (4) AMS (altered mental status) Conclusion/Plan: Today she opened her eyes for her nurse when she was touched. She is still too lethargic to try a swallow screen by the RN The patient is still mostly obtunded, by my exam. She appears in no distress and is asleep, however she minimally respond to sternal rub by wincing We have only description of her behavior from the memory care center, which was that she was interactive, talking, eating before 3 days ago. Therefore this is a significant change in her mental state Plan: Anticipate that her new obtundation/altered mental status will continue improve with hydration and treating the infection, otherwise will do head CT (5) Dementia Conclusion/Plan: Plan: We will resume her Seroquel when she is able to swallow We will await for pharmacy to reconcile her entire medication list (6) Cachexia Conclusion/Plan: The patient has skin tenting and sunken eyes which could be consistent with dehydration from no oral intake for 3 days but appears to have underlying cachexia There is no POLST in the chart but the daughter's discussion with the ED provider indicated that no aggressive measures should be undertaken, comfort is the goal, daughter okayed IV fluids and IV antibiotics Plan: There is already a plan to have palliative care start seeing this patient going in the direction of hospice for end-of-life. (7) Tachycardia Conclusion/Plan: Resolved With starting IV hydration and antibiotic Despite having no fever documented, she was tachycardic at admission This may be a result of volume depletion, pain, or from possibly missing her heart rate-slowing medications since she was not taking in her diet for 2-1/2 days Plan: Remain on telemetry We will order any of her usual heart rate-slowing medications when she can swallow, once her medication list is reconciled by our pharmacy - Current Meds Current Meds: Current Medications Generic Name Dose Route Start Last Admin Trade Name Freq PRN Reason Stop Dose Admin Dextrose/Sodium Chloride 1,000 mls @ 100 mls/hr 05/20/22 19:00 05/21/22 08:20 D5ns IV 0 mls/hr .Q10H [facility] Infusion Ceftriaxone Sodium 1 gm/ 100 mls @ 200 mls/hr 05/21/22 09:00 05/21/22 08:20 Sodium Chloride IV 200 mls/hr DAILY [facility] Administration Quetiapine Fumarate 25 mg 05/20/22 21:00 05/21/22 08:28 Quetiapine 25 Mg Tablet PO 25 mg BID [facility] Administration Senna 8.6 mg 05/20/22 21:00 05/20/22 21:36 Senna 8.6 Mg Tablet PO Not Given HS [facility] Sodium Chloride 10 ml 05/21/22 01:00 05/21/22 08:23 Sodium Chloride Flush 0.9% 10 Ml Syringe IVP Not Given 0100,0900,1700 [facility] - Lab Result Fish Bone Diagrams: 05/21/22 09:04 05/21/22 09:04 - Additional Planning My Orders: My Active Orders 05/20/22 18:29 Activity Orders [RC] Q2HR IO [RC] IOSHIFT Initiate Bowel Care Protocol [RC] .protocol Initiate Flu Vaccine Screening [RC] ONCE Initiate Line Care Protocol [RC] QSHIFT Initiate Personal Care Protoco [RC] .protocol Initiate Pneumonia Vaccine Scr [RC] ONCE Oxygen Therapy [RC] .PRN Telemetry- [RC] Q4HR Vital Signs [RC] 0800,1600,0000 Acetaminophen [Tylenol] 650 mg PO Q4HR PRN Ondansetron Inj [Zofran Inj] 4 mg IVP Q6HR PRN Sodium Chloride Flush 0.9% [Normal Saline Flush 0.9%] 10 ml IVP PRN PRN Code Status [OTHERS] Routine Condition of Patient [OTHERS] Routine DVT Prophylaxis [OTHERS] Routine 05/20/22 18:30 Daily Weight [RC] 0600 IV Insert [RC] .ONCE Initiate Line Care Protocol [RC] QSHIFT SCDs [RC] QSHIFT Bisacodyl Supp [Dulcolax Supp] 10 mg [place] DAILY PRN Mag Hydrox/Al Hydrox/Simeth [Mylanta Plus] 30 ml PO Q4H PRN 05/20/22 19:00 Dextrose 5%-0.9% NaCl [D5ns] 1,000 ml IV 100 mls/hr 05/20/22 21:00 QUEtiapine [SEROquel] 25 mg PO BID Senna [Senokot] 8.6 mg PO HS 05/21/22 BMP - BASIC METABOLIC PANEL [CHEM] Urgent CBC - COMP BLD CT W/AUTO DIFF [HEME] Urgent 05/21/22 01:00 Sodium Chloride Flush 0.9% [Normal Saline Flush 0.9%] 10 ml IVP 0100,0900,1700 05/21/22 Breakfast Dysphagia - Puree [DIET] 05/21/22 09:00 Senna [Senokot] 17.2 mg PO DAILY cefTRIAXone [Rocephin] 1 gm Sodium Chloride 0.9% Minibag [Normal Saline 0.9% Minibag] 100 ml IV DAILY 05/22/22 05:00 BMP - BASIC METABOLIC PANEL [CHEM] DAILYLAB CBC - COMP BLD CT W/AUTO DIFF [HEME] DAILYLAB 05/23/22 05:00 BMP - BASIC METABOLIC PANEL [CHEM] DAILYLAB CBC - COMP BLD CT W/AUTO DIFF [HEME] DAILYLAB 05/24/22 05:00 BMP - BASIC METABOLIC PANEL [CHEM] DAILYLAB CBC - COMP BLD CT W/AUTO DIFF [HEME] DAILYLAB Objective Vital Signs: Vital Signs - 24 hr 05/20/22 05/20/22 05/20/22 12:53 14:17 17:00 Temperature 37.9 C 36.5 C Heart Rate 110 H 105 H 114 H Heart Rate [ Brachial] Respiratory 20 22 20 Rate Blood Pressure 124/89 H 116/80 105/72 Blood Pressure [Right Brachial artery] O2 Saturation 91 L 91 L 93 If not protocol 3 : Oxygen Flow, liters/minute 05/20/22 05/20/22 05/20/22 18:28 19:04 20:28 Temperature 36.7 C Heart Rate 102 H Heart Rate [ 100 Brachial] Respiratory 19 21 Rate Blood Pressure 97/64 Blood Pressure 111/67 [Right Brachial artery] O2 Saturation 93 93 94 If not protocol 3 3 2 : Oxygen Flow, liters/minute 05/20/22 05/21/22 05/21/22 20:30 00:49 05:11 Temperature 37.3 C 36.9 C Heart Rate Heart Rate [ 94 86 Brachial] Respiratory 16 18 Rate Blood Pressure Blood Pressure 98/58 L 101/62 [Right Brachial artery] O2 Saturation 94 96 If not protocol 2 2 2 : Oxygen Flow, liters/minute 05/21/22 08:00 Temperature 36.7 C Heart Rate Heart Rate [ 86 Brachial] Respiratory 17 Rate Blood Pressure Blood Pressure 108/69 [Right Brachial artery] O2 Saturation 95 If not protocol 2 : Oxygen Flow, liters/minute Oxygen O2 Source Nasal cannula I&O (Last 24 Hrs): Intake and Output Totals x24h 05/19/22 05/20/22 05/21/22 23:59 23:59 23:59 Intake Total 1100 1195 Balance 1100 1195 - Results Results: Laboratory Results WBC 8.4 x10^3/uL (4.8-10.8) 05/20/22 13: RBC 4.13 10^6/uL (4.20-5.40) L 05/20/22 13:23 Hgb 12.9 g/dL (12.0-16.0) 05/20/22 13:23 Hct 39.5 % (37.0-47.0) 05/20/22 13:23 MCV 95.6 fL (81.0-99.0) 05/20/22 13:23 MCH 31.2 pg (27.0-31.0) H 05/20/22 13:23 MCHC 32.7 g/dL (32.0-36.0) 05/20/22 13:23 RDW 13.3 % (12.0-15.0) 05/20/22 13:23 Plt Count 77 10^3/uL (130-450) L 05/20/22 13:23 MPV 9.8 fL (7.9-10.8) 05/20/22 13:23 Neut # (Auto) Not Reportable 05/20/22 13:23 Lymph # (Auto) Not Reportable 05/20/22 13:23 Bowman # (Auto) Not Reportable 05/20/22 13:23 Eos # (Auto) Not Reportable 05/20/22 13:23 Baso # (Auto) Not Reportable 05/20/22 13:23 Absolute Nucleated RBC Not Reportable 05/20/22 13:23 Total Counted 100 05/20/22 13:23 Band Neuts % (Manual) 9 % (0-10) 05/20/22 13:23 Abnorm Lymph % (Manual) 0 % 05/20/22 13:23 Metamyelocytes % 2 % (-0) H 05/20/22 13:23 Nucleated RBC % Not Reportable 05/20/22 13:23 Neutrophils # (Manual) 7.1 10^3/uL (1.5-6.6) H 05/20/22 13:23 Lymphocytes # (Manual) 0.2 10^3/uL (1.5-3.5) L 05/20/22 13:23 Monocytes # (Manual) 0.8 10^3/uL (0.0-1.0) 05/20/22 13:23 Eosinophils # (Manual) 0.1 10^3/uL (0-0.7) 05/20/22 13:23 Basophils # (Manual) 0.0 10^3/uL (0-0.1) 05/20/22 13:23 Differential Comment MANUAL DIFFERENTIAL 05/20/22 13: Platelet Estimate DECREASED (<130,000) (NORMAL) 05/20/22 13:23 Platelet Morphology NORMAL APPEARANCE (NORMAL) 05/20/22 13:23 RBC Morph Micro Appear NORMAL APPEARANCE (NORMAL) 05/20/22 13:23 Sodium 143 mmol/L (135-145) 05/20/22 13:23 Potassium 3.6 mmol/L (3.5-5.0) 05/20/22 13:23 Chloride 113 mmol/L (101-111) H 05/20/22 13:23 Carbon Dioxide 22 mmol/L (21-32) 05/20/22 13:23 Anion Gap 8.0 (6-13) 05/20/22 13:23 BUN 59 mg/dL (6-20) H 05/20/22 13:23 Creatinine 1.8 mg/dL (0.4-1.0) H 05/20/22 13:23 Estimated GFR (MDRD) 27 (>89) L 05/20/22 13:23 Glucose 85 mg/dL (70-100) 05/20/22 13:23 Lactic Acid 1.9 mmol/L (0.5-2.2) 05/20/22 13:23 Calcium 8.0 mg/dL (8.5-10.3) L 05/20/22 13:23 Total Bilirubin 0.7 mg/dL (0.2-1.0) 05/20/22 13:23 AST 72 IU/L (10-42) H 05/20/22 13:23 ALT 49 IU/L (10-60) 05/20/22 13:23 Alkaline Phosphatase 177 IU/L (42-121) H 05/20/22 13:23 B-Natriuretic Peptide 348 pg/mL (5-100) H 05/20/22 13:23 Total Protein 6.4 g/dL (6.7-8.2) L 05/20/22 13:23 Albumin 3.0 g/dL (3.2-5.5) L 05/20/22 13:23 Globulin 3.4 g/dL (2.1-4.2) 05/20/22 13:23 Albumin/Globulin Ratio 0.9 (1.0-2.2) L 05/20/22 13:23 Lipase 22 U/L (22-51) 05/20/22 13:23 Urine Color YELLOW 05/20/22 13:08 Urine Clarity SL. CLOUDY (CLEAR) 05/20/22 13:08 Urine pH 5.5 PH (5.0-7.5) 05/20/22 13:08 Ur Specific [place] 1.020 (1.002-1.030) 05/20/22 13:08 Urine Protein TRACE mg/dL (NEGATIVE) 05/20/22 13:08 Urine Glucose (UA) NEGATIVE mg/dL (NEGATIVE) 05/20/22 13:08 Urine Ketones NEGATIVE mg/dL (NEGATIVE) 05/20/22 13:08 Urine Occult Blood SMALL (NEGATIVE) H 05/20/22 13:08 Urine Nitrite POSITIVE (NEGATIVE) H 05/20/22 13:08 Urine Bilirubin NEGATIVE (NEGATIVE) 05/20/22 13:08 Urine Urobilinogen 0.2 (NORMAL) E.U./dL (NORMAL) 05/20/22 13:08 Ur Leukocyte Esterase TRACE (NEGATIVE) H 05/20/22 13:08 Urine RBC 11-25 /HPF (0-5) H 05/20/22 13:08 Urine WBC 11-25 /HPF (0-5) H 05/20/22 13:08 Ur Squamous Epith Cells RARE Squamous (<= Few) 05/20/22 13:08 Urine Bacteria Moderate /HPF (None Seen) H 05/20/22 13:08 Ur Microscopic Review INDICATED 05/20/22 13:08 Urine Culture Comments INDICATED 05/20/22 13:08 Nasal Adenovirus (PCR) NOT DETECTED 05/20/22 13:10 Nasal B. parapertussis DNA (PCR) NOT DETECTED 05/20/22 13:10 Nasal Coronavir 229E PCR NOT DETECTED 05/20/22 13:10 Nasal Coronavir HKU1 PCR NOT DETECTED 05/20/22 13:10 Nasal Coronavir NL63 PCR NOT DETECTED 05/20/22 13:10 Nasal Coronavir OC43 PCR NOT DETECTED 05/20/22 13:10 Nasal Enterovir/Rhinovir PCR NOT DETECTED 05/20/22 13:10 Nasal Influenza B PCR NOT DETECTED 05/20/22 13:10 Nasal Influenza A PCR NOT DETECTED 05/20/22 13:10 Nasal Parainfluen 1 PCR NOT DETECTED 05/20/22 13:10 Nasal Parainfluen 2 PCR NOT DETECTED 05/20/22 13:10 Nasal Parainfluen 3 PCR NOT DETECTED 05/20/22 13:10 Nasal Parainfluen 4 PCR NOT DETECTED 05/20/22 13:10 Nasal RSV (PCR) NOT DETECTED 05/20/22 13:10 Nasal B.pertussis DNA PCR NOT DETECTED 05/20/22 13:10 Nasal C.pneumoniae (PCR) NOT DETECTED 05/20/22 13:10 Clement Human Metapneumo PCR NOT DETECTED 05/20/22 13:10 Nasal M.pneumoniae (PCR) NOT DETECTED 05/20/22 13:10 Nasal SARS-CoV-2 (PCR) NOT DETECTED 05/20/22 13:10 Sepsis Event Note (H) - Evaluation Current Stage of Sepsis: Sepsis Possible source of Sepsis: positive: Genitourinary - Sepsis Criteria Sepsis Criteria: Recorded Heart Rate greater than 90 bpm, Respiratory: Increasing oxygen requirements, CAN DOFFER: altered consciousness (unrelated to primary neuro pathology), Hematologic: platelets < 100,000; INR > 1.5, or a PTT>60 sec onds
[2022-05-21] MEDS ORDERED: cefTRIAXone 1 GM in SODIUM CHLORIDE 0.9% MINIBAG 100 ML IV SCH (09:00)
[2022-05-21 09:11] LABS: HGB - HEMOGLOBIN 11.1 g/dL (12.0-16.0); LYMPHOCYTES % (AUTO) 2.1 %; MEAN CORPUSCULAR HEMOGLOBIN 31.3 pg (27.0-31.0); MEAN CORPUSCULAR HGB CONC 31.7 g/dL (32.0-36.0); MEAN CORPUSCULAR VOLUME 98.6 fL (81.0-99.0); MEAN PLATELET VOLUME 11.5 fL (7.9-10.8); MONOCYTES % (AUTO) 6.3 %; NEUTROPHILS % (AUTO) 90.2 %; PLT - PLATELET COUNT 46 10^3/uL (130-450); RED BLOOD COUNT 3.55 10^6/uL (4.20-5.40); RED CELL DISTRIBUTION WIDTH 13.8 % (12.0-15.0); WHITE BLOOD COUNT 18.2 x10^3/uL (4.8-10.8)
[2022-05-21 09:16] LABS: ABNORMAL LYMPHS % (MANUAL) 0 %
[2022-05-21 09:17] LABS: CALCIUM 7.5 mg/dL (8.5-10.3); CREATININE 1.9 mg/dL (0.4-1.0); POTASSIUM 3.8 mmol/L (3.5-5.0)
[2022-05-21 09:31] LABS: BAND NEUTROPHILS % (MANUAL) 10 %; DIFFERENTIAL COMMENT MANUAL DIFFERENTIAL; LYMPHOCYTES # (MANUAL) 0.9 10^3/uL (1.5-3.5); LYMPHOCYTES % (MANUAL) 5 %; METAMYELOCYTES % (MANUAL) 3 %; MONOCYTES # (MANUAL) 3.3 10^3/uL (0.0-1.0); NEUTROPHILS # (MANUAL) 13.5 10^3/uL (1.5-6.6); PLATELET ESTIMATE, MANUAL DECREASED (<130,000) (NORMAL); PLATELET MORPHOLOGY NORMAL APPEARANCE (NORMAL); RBC MORPHOLOGY (MULTIPLE) NORMAL APPEARANCE (NORMAL)
[2022-05-21] MEDS ORDERED: cefTRIAXone 1 GM in SODIUM CHLORIDE 0.9% MINIBAG 100 ML IV STA (10:13)
[2022-05-21] MEDS: SENNA 8.6 MG TABLET PO SCH ×2 (10:36→20:06)
--- NOTE | 2022-05-21 11:23 | PHARMACY PROGRESS NOTE ---
- Best Possible Medication History Admit Date and Time: 05/20/22 1829 Processed by: Pharmacy Medication History completed: Yes Patient Interview: Pt unable to participate Secondary Source(s): Pharmacy records, Facility MAR as ONLY source (Pt stays at [facility] in [place]. Spoke to Monika) As the person ultimately responsible for medication therapy, providers are able to order a medication from an existing home medication list in [facility] via the "Reconcile Routine" prior to Confirmation of that medication by production support specialist. Such practice is discouraged except when the physician, in their clinical judgment, deems that a medical need exists for a medication without regard to previous use.
[2022-05-22] MEDS: SODIUM CHLORIDE FLUSH 0.9% 10 ML SYRINGE IVP SCH ×3 (03:07→21:07)
[2022-05-22] MEDS: DEXTROSE 5%-0.9% NACL 1,000 ML IV SCH (03:08)
[2022-05-22 05:06] LABS: BASOPHILS % (AUTO) 0.9 %; EOSINOPHILS % (AUTO) 0.1 %; HCT - HEMATOCRIT 35.4 % (37.0-47.0); LYMPHOCYTES % (AUTO) 2.1 %; MEAN CORPUSCULAR HEMOGLOBIN 30.1 pg (27.0-31.0); MEAN CORPUSCULAR HGB CONC 31.1 g/dL (32.0-36.0); MEAN PLATELET VOLUME 11.3 fL (7.9-10.8); MONOCYTES % (AUTO) 5.3 %; NEUTROPHILS % (AUTO) 82.5 %; RED BLOOD COUNT 3.65 10^6/uL (4.20-5.40); WHITE BLOOD COUNT 18.8 x10^3/uL (4.8-10.8)
[2022-05-22 05:11] LABS: PLT - PLATELET COUNT 34 10^3/uL (130-450)
[2022-05-22 05:12] LABS: ABNORMAL LYMPHS % (MANUAL) 0 %
[2022-05-22 05:23] LABS: BAND NEUTROPHILS % (MANUAL) 6 %; LYMPHOCYTES # (MANUAL) 0.9 10^3/uL (1.5-3.5); LYMPHOCYTES % (MANUAL) 5 %; MONOCYTES # (MANUAL) 0.9 10^3/uL (0.0-1.0); NEUTROPHILS # (MANUAL) 16.9 10^3/uL (1.5-6.6)
[2022-05-22 05:24] LABS: DIFFERENTIAL COMMENT MANUAL DIFFERENTIAL; MAGNESIUM 2.3 mg/dL (1.7-2.8); PHOSPHORUS 1.6 mg/dL (2.5-4.6); PLATELET ESTIMATE, MANUAL DECREASED (<130,000) (NORMAL); PLATELET MORPHOLOGY NORMAL APPEARANCE (NORMAL); RBC MORPHOLOGY (MULTIPLE) NORMAL APPEARANCE (NORMAL); WBC MORPHOLOGY (MULTIPLE) NORMAL APPEARANCE (NORMAL)
[2022-05-22 05:25] LABS: CALCIUM 7.8 mg/dL (8.5-10.3); CREATININE 1.6 mg/dL (0.4-1.0); POTASSIUM 3.6 mmol/L (3.5-5.0)
[2022-05-22] MEDS ORDERED: SODIUM PHOSPHATE 15 MMOL in SODIUM CHLORIDE 0.9% 250 ML IV ONE (07:45)
[2022-05-22] MEDS ORDERED: SODIUM CHLORIDE 0.9% MINIBAG 100 ML IV ONE (08:57)
[2022-05-22] MEDS ORDERED: POTASSIUM PHOSPHATE 15 MMOL in SODIUM CHLORIDE 0.9% 250 ML IV ONE (09:00)
[2022-05-22] MEDS: DEXTROSE 5%-0.45% NACL 1,000 ML IV SCH (09:08)
[2022-05-22] MEDS: cefTRIAXone 2 GM in SODIUM CHLORIDE 0.9% MINIBAG 100 ML IV SCH (09:12)
[2022-05-22] MEDS: QUEtiapine 25 MG TABLET PO SCH ×2 (10:28→21:07)
[2022-05-22] MEDS: SENNA 8.6 MG TABLET PO SCH ×2 (10:33→21:07)
--- NOTE | 2022-05-22 11:41 | CT Report ---
PROCEDURE: HEAD WO INDICATIONS: Prolonged obtundation, dropping plts TECHNIQUE: Noncontrast 4.5 mm thick angled axial sections acquired from the foramen magnum to the vertex. For r adiation dose reduction, the following was used: automated exposure control, adjustment of mA and/or kV according to patient size. COMPARISON: None. FINDINGS: Image quality: Excellent. CSF spaces: Basal cisterns are patent. No extra-axial fluid collections. Ventricles are normal in size and shape. Brain: No midline shift. No intracranial masses or hemorrhage. Loss of kelley-white matter differenti ation in the anterior left frontal lobe. Skull and face: Calvarium and visualized facial bones are intact, without suspicious lesions. Hyper ostosis frontalis interna. 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 Sinuses: Visualized sinuses and mastoids are clear. IMPRESSION: Loss of kelley-white matter differentiation in the anterior left frontal lobe. Adjacent dense bone from hyperostosis frontalis interna. Findings could indicate age-indeterminate infarct versus artifact. Reviewed by: Mina Polk on 05/22/2022 11:40 AM PDT Approved by: Mina Polk on 05/22/2022 11:40 AM PDT Station ID: [id number]
--- NOTE | 2022-05-22 22:48 | PROVIDER PROGRESS NOTE ---
Assessment/Plan - Problem List (1) E coli bacteremia Assessment/Plan: On 05/21, 2 of 2 blood cultures have returned showing growth and the PCR identification shows E. coli Plan: Continue with ceftriaxone at the increased dose, up from 1 g daily to 2 g daily (2) Sepsis Assessment/Plan: Patient had sepsis criteria including tachycardia, low platelet count of 77, new altered mental status on top of her usual mental w/ dementia, and a urinary tract infection source was apparent. Vital signs and labs are all reviewed today. Today her tachycardia has gone, but her white blood count has worsened from 8.4, up to 18.2, Platelet count has worsened from 77 down to 46 and further down to 34, and she is still severely obtunded A repeat lactic acid level was checked and we checked for DIC by ordering a fibrinogen level, to see if she has worsening sepsis, both were not worsened. Plan: Continue to treat with IV fluids Continue empiric IV antibiotics Await blood and urine cultures to adjust antibiotics Will get STAT head CT today, concerned for brain bleed, given the persistent obtundation and the new low plt count>> the result showed no bleed, but a stroke was seen, unknown duration (3) UTI (urinary tract infection) Conclusion/Plan: The patient had blood culture and urine culture sent off from the ED. I reviewed her urinalysis which was very abnormal normal showing WBCs and bacteria, nitrites and leukocyte esterase Plan: We will continue with IV empiric antibiotics using ceftriaxone Await urine and blood culture results to adjust her antibiotics (4) AMS (altered mental status) Conclusion/Plan: Today she opened her eyes for her nurse when she was touched. She did pass a swallow screen by the RN The patient is still mostly obtunded, by my exam. She appears in no distress. We have only description of her behavior from the memory care center, which was that she was interactive, talking, eating 3 days before the admission. Therefore this is a significant change in her mental state Today 05/22, we got a STAT head CT, concerned for brain bleed, given the persistent obtundation and the new low plt count>> the result showed no bleed, but a stroke was seen, unknown duration Plan: Continue supportive care. She will need new PT and OT eal and treatment, if this was a new stroke. (5) Dementia Conclusion/Plan: Plan: We will resume her Seroquel when she is able to swallow (6) Cachexia Conclusion/Plan: The patient has skin tenting and sunken eyes which could be consistent with dehydration from no oral intake for 3 days prior to adm, but she appears to have underlying cachexia There is no POLST in the chart but the daughter's discussion with the ED provider indicated that no aggressive measures should be undertaken, comfort is the goal, daughter okayed IV fluids and IV antibiotics Plan: There is already a plan to have palliative care start seeing this patient soon, going in the direction of hospice for end-of-life. (7) Tachycardia Conclusion/Plan: Resolved With starting IV hydration and antibiotic Despite having no fever documented, she was tachycardic at admission This may be a result of volume depletion, pain, or from possibly missing her heart rate-slowing medications since she was not taking in her diet for 2-1/2 days Plan: Remain on telemetry We will order any of her usual heart rate-slowing medications when she can swallow, once her medication list is reconciled by our pharmacy - Current Meds Current Meds: Current Medications Generic Name Dose Route Start Last Admin Trade Name Freq PRN Reason Stop Dose Admin Ceftriaxone Sodium 2 gm/ 100 mls @ 200 mls/hr 05/22/22 09:00 05/22/22 09:42 Sodium Chloride IV Infused DAILY [facility] Infusion Dextrose/Sodium Chloride 1,000 mls @ 83.333 mls/hr 05/22/22 08:00 05/22/22 14:58 D5.45ns IV 83.3 mls/hr .Q12H [facility] Infusion Quetiapine Fumarate 25 mg 05/20/22 21:00 05/22/22 21:07 Quetiapine 25 Mg Tablet PO 25 mg BID [facility] Administration Senna 8.6 mg 05/20/22 21:00 05/22/22 21:07 Senna 8.6 Mg Tablet PO 8.6 mg HS [facility] Administration Senna 17.2 mg 05/21/22 09:00 05/22/22 10:33 Senna 8.6 Mg Tablet PO Not Given DAILY [facility] Sodium Chloride 10 ml 05/20/22 18:29 05/22/22 11:06 Sodium Chloride Flush 0.9% 10 Ml Syringe IVP 10 ml PRN PRN Administration NEEDED PER PROVIDER ORDERS Sodium Chloride 10 ml 05/21/22 01:00 05/22/22 21:07 Sodium Chloride Flush 0.9% 10 Ml Syringe IVP Not Given 0100,0900,1700 [facility] - Lab Result Fish Bone Diagrams: 05/22/22 04:37 05/22/22 04:37 - Additional Planning My Orders: My Active Orders 05/22/22 08:00 Dextrose 5%-0.45% NaCl [D5.45ns] 1,000 ml IV 83.333 mls/hr 05/22/22 09:00 cefTRIAXone [Rocephin] 2 gm Sodium Chloride 0.9% Minibag [Normal Saline 0.9% Minibag] 100 ml IV DAILY 05/22/22 Lunch Dysphagia - Puree [DIET] 05/23/22 05:00 BMP - BASIC METABOLIC PANEL [CHEM] DAILYLAB BNP - B-NATRIURETIC PEPTIDE [IAI] DAILYLAB CBC - COMP BLD CT W/AUTO DIFF [HEME] DAILYLAB 05/23/22 07:00 Echo Transthoracic Complete [ECHO] Routine 05/23/22 08:00 Multivitamin W/Minerals [Theragran M] 1 tab PO DAILYWM 05/24/22 05:00 BMP - BASIC METABOLIC PANEL [CHEM] DAILYLAB CBC - COMP BLD CT W/AUTO DIFF [HEME] DAILYLAB Subjective - Subjective Nursing Reports: Other (Kept eyes open long enough to swallow, she is still asleep most of the day) Objective Vital Signs: Vital Signs - 24 hr 05/22/22 05/22/22 05/22/22 00:06 03:48 08:00 Temperature 36.7 C 36.5 C 36.3 C L Heart Rate [ 88 91 79 Brachial] Respiratory 20 18 16 Rate Blood Pressure 105/79 116/67 [Left Brachial artery] Blood Pressure 128/64 [Right Brachial artery] O2 Saturation 93 93 93 05/22/22 05/22/22 05/22/22 12:45 16:00 20:00 Temperature 36.3 C L 36.6 C 36.8 C Heart Rate [ 83 84 86 Brachial] Respiratory 18 20 20 Rate Blood Pressure [Left Brachial artery] Blood Pressure 144/81 H 140/82 H 140/72 H [Right Brachial artery] O2 Saturation 92 90 L 94 Oxygen O2 Source Room air I&O (Last 24 Hrs): Intake and Output Totals x24h 04/08/23 04/09/23 04/10/23 23:59 23:59 23:59 Intake Total 1100 3086.667 1654.916 Output Total 600 Balance 1100 3086.667 1054.916 General: No acute distress, Other (Lethargic, opens eyes to command, able to swallow, moves both arms spontaneously.) HEENT: EOMI, Other (Eyes are sunken, temporal wasting) Neuro: Other (Lethargic, bradykinetic when moves, follows commands, speaks 1-2 word answers.) Cardiovascular: Regular rate Respiratory: No respiratory distress, Breath sounds nml Abdomen: Soft, No tenderness Extremities: No clubbing, No edema, Other ((+) skin tenting, muscle wasting) - Results Results: Laboratory Results WBC 18.8 x10^3/uL (4.8-10.8) H 05/22/22 04:37 RBC 3.65 10^6/uL (4.20-5.40) L 05/22/22 04:37 Hgb 11.0 g/dL (12.0-16.0) L 05/22/22 04:37 Hct 35.4 % (37.0-47.0) L 05/22/22 04:37 MCV 97.0 fL (81.0-99.0) 05/22/22 04:37 MCH 30.1 pg (27.0-31.0) 05/22/22 04:37 MCHC 31.1 g/dL (32.0-36.0) L 05/22/22 04:37 RDW 14.0 % (12.0-15.0) 05/22/22 04:37 Plt Count 34 10^3/uL (130-450) L* 05/22/22 04:37 MPV 11.3 fL (7.9-10.8) H 05/22/22 04:37 Neut # (Auto) Not Reportable 05/22/22 04:37 Lymph # (Auto) Not Reportable 05/22/22 04:37 [place] # (Auto) Not Reportable 05/22/22 04:37 Eos # (Auto) Not Reportable 05/22/22 04:37 Baso # (Auto) Not Reportable 05/22/22 04:37 Absolute Nucleated RBC Not Reportable 05/22/22 04:37 Total Counted 100 05/22/22 04:37 Band Neuts % (Manual) 6 % (0-10) 05/22/22 04:37 Abnorm Lymph % (Manual) 0 % 05/22/22 04:37 Metamyelocytes % 3 % (-0) H 05/21/22 09:04 Nucleated RBC % Not Reportable 05/22/22 04:37 Neutrophils # (Manual) 16.9 10^3/uL (1.5-6.6) H 05/22/22 04:37 Lymphocytes # (Manual) 0.9 10^3/uL (1.5-3.5) L 05/22/22 04:37 Monocytes # (Manual) 0.9 10^3/uL (0.0-1.0) 05/22/22 04:37 Eosinophils # (Manual) 0.0 10^3/uL (0-0.7) 05/22/22 04:37 Basophils # (Manual) 0.0 10^3/uL (0-0.1) 05/22/22 04:37 Differential Comment MANUAL DIFFERENTIAL 05/22/22 04:37 WBC Morphology NORMAL APPEARANCE (NORMAL) 05/22/22 04:37 Platelet Estimate DECREASED (<130,000) (NORMAL) 05/22/22 04:37 Platelet Morphology NORMAL APPEARANCE (NORMAL) 05/22/22 04:37 RBC Morph Micro Appear NORMAL APPEARANCE (NORMAL) 05/22/22 04:37 Fibrinogen 854 mg/dL (220-496) H* 05/21/22 17:16 Sodium 147 mmol/L (135-145) H 05/22/22 04:37 Potassium 3.6 mmol/L (3.5-5.0) 05/22/22 04:37 Chloride 123 mmol/L (101-111) H* 05/22/22 04:37 Carbon Dioxide 21 mmol/L (21-32) 05/22/22 04:37 Anion Gap 3.0 (6-13) L 05/22/22 04:37 BUN 53 mg/dL (6-20) H 05/22/22 04:37 Creatinine 1.6 mg/dL (0.4-1.0) H 05/22/22 04:37 Estimated GFR (MDRD) 31 (>89) L 05/22/22 04:37 Glucose 111 mg/dL (70-100) H 05/22/22 04:37 Lactic Acid 1.3 mmol/L (0.5-2.2) 05/21/22 17:16 Calcium 7.8 mg/dL (8.5-10.3) L 05/22/22 04:37 Phosphorus 1.6 mg/dL (2.5-4.6) L 05/22/22 04:37 Magnesium 2.3 mg/dL (1.7-2.8) 05/22/22 04:37 Total Bilirubin 0.7 mg/dL (0.2-1.0) 05/20/22 13:23 AST 72 IU/L (10-42) H 05/20/22 13:23 ALT 49 IU/L (10-60) 05/20/22 13:23 Alkaline Phosphatase 177 IU/L (42-121) H 05/20/22 13:23 B-Natriuretic Peptide 530 pg/mL (5-100) H 05/22/22 04:37 Total Protein 6.4 g/dL (6.7-8.2) L 05/20/22 13:23 Albumin 3.0 g/dL (3.2-5.5) L 05/20/22 13:23 Globulin 3.4 g/dL (2.1-4.2) 05/20/22 13:23 Albumin/Globulin Ratio 0.9 (1.0-2.2) L 05/20/22 13:23 Lipase 22 U/L (22-51) 05/20/22 13:23 Urine Color YELLOW 05/20/22 13:08 Urine Clarity SL. CLOUDY (CLEAR) 05/20/22 13:08 Urine pH 5.5 PH (5.0-7.5) 05/20/22 13:08 Ur Specific [place] 1.020 (1.002-1.030) 05/20/22 13:08 Urine Protein TRACE mg/dL (NEGATIVE) 05/20/22 13:08 Urine Glucose (UA) NEGATIVE mg/dL (NEGATIVE) 05/20/22 13:08 Urine Ketones NEGATIVE mg/dL (NEGATIVE) 05/20/22 13:08 Urine Occult Blood SMALL (NEGATIVE) H 05/20/22 13:08 Urine Nitrite POSITIVE (NEGATIVE) H 05/20/22 13:08 Urine Bilirubin NEGATIVE (NEGATIVE) 05/20/22 13:08 Urine Urobilinogen 0.2 (NORMAL) E.U./dL (NORMAL) 05/20/22 13:08 Ur Leukocyte Esterase TRACE (NEGATIVE) H 05/20/22 13:08 Urine RBC 11-25 /HPF (0-5) H 05/20/22 13:08 Urine WBC 11-25 /HPF (0-5) H 05/20/22 13:08 Ur Squamous Epith Cells RARE Squamous (<= Few) 05/20/22 13:08 Urine Bacteria Moderate /HPF (None Seen) H 05/20/22 13:08 Ur Microscopic Review INDICATED 05/20/22 13:08 Urine Culture Comments INDICATED 05/20/22 13:08 Nasal Adenovirus (PCR) NOT DETECTED 05/20/22 13:10 Nasal B. parapertussis DNA (PCR) NOT DETECTED 05/20/22 13:10 Nasal Coronavir 229E PCR NOT DETECTED 05/20/22 13:10 Nasal Coronavir HKU1 PCR NOT DETECTED 05/20/22 13:10 Nasal Coronavir NL63 PCR NOT DETECTED 05/20/22 13:10 Nasal Coronavir OC43 PCR NOT DETECTED 05/20/22 13:10 Nasal Enterovir/Rhinovir PCR NOT DETECTED 05/20/22 13:10 Nasal Influenza B PCR NOT DETECTED 05/20/22 13:10 Nasal Influenza A PCR NOT DETECTED 05/20/22 13:10 Nasal Parainfluen 1 PCR NOT DETECTED 05/20/22 13:10 Nasal Parainfluen 2 PCR NOT DETECTED 05/20/22 13:10 Nasal Parainfluen 3 PCR NOT DETECTED 05/20/22 13:10 Nasal Parainfluen 4 PCR NOT DETECTED 05/20/22 13:10 Nasal RSV (PCR) NOT DETECTED 05/20/22 13:10 Nasal B.pertussis DNA PCR NOT DETECTED 05/20/22 13:10 Nasal C.pneumoniae (PCR) NOT DETECTED 05/20/22 13:10 Clement Human Metapneumo PCR NOT DETECTED 05/20/22 13:10 Nasal M.pneumoniae (PCR) NOT DETECTED 05/20/22 13:10 Nasal SARS-CoV-2 (PCR) NOT DETECTED 05/20/22 13:10 Sepsis Event Note (H) - Evaluation Current Stage of Sepsis: Sepsis Possible source of Sepsis: positive: Genitourinary - Sepsis Criteria Sepsis Criteria: Recorded Heart Rate greater than 90 bpm, Respiratory: Increasing oxygen requirements, GRINDER SET UP OPERATOR THREAD TOOL: altered consciousness (unrelated to primary neuro pathology), Hematologic: platelets < 100,000; INR > 1.5, or a PTT>60 seconds
[2022-05-23] MEDS: DEXTROSE 5%-0.45% NACL 1,000 ML IV SCH (00:35)
[2022-05-23] MEDS: SODIUM CHLORIDE FLUSH 0.9% 10 ML SYRINGE IVP SCH ×3 (01:20→18:01)
[2022-05-23] MEDS: ZINC OXIDE 20% OINT 30 GM TUBE TOP PRN (03:21)
[2022-05-23 05:06] LABS: BASOPHILS # (AUTO) 0.1 10^3/uL (0.0-0.1); BASOPHILS % (AUTO) 0.4 %; EOSINOPHILS % (AUTO) 0.2 %; HCT - HEMATOCRIT 36.2 % (37.0-47.0); HGB - HEMOGLOBIN 11.3 g/dL (12.0-16.0); LYMPHOCYTES # (AUTO) 0.8 10^3/uL (1.5-3.5); LYMPHOCYTES % (AUTO) 6.8 %; MEAN CORPUSCULAR HEMOGLOBIN 30.5 pg (27.0-31.0); MEAN CORPUSCULAR HGB CONC 31.2 g/dL (32.0-36.0); MEAN CORPUSCULAR VOLUME 97.8 fL (81.0-99.0); MEAN PLATELET VOLUME 11.8 fL (7.9-10.8); MONOCYTES # (AUTO) 1.1 10^3/uL (0.0-1.0); MONOCYTES % (AUTO) 9.1 %; NEUTROPHILS # (AUTO) 10.2 10^3/uL (1.5-6.6); NEUTROPHILS % (AUTO) 82.8 %; RED CELL DISTRIBUTION WIDTH 14.4 % (12.0-15.0); WHITE BLOOD COUNT 12.3 x10^3/uL (4.8-10.8)
[2022-05-23 05:09] LABS: PLT - PLATELET COUNT 35 10^3/uL (130-450)
[2022-05-23 05:14] LABS: CALCIUM 7.5 mg/dL (8.5-10.3); CREATININE 1.4 mg/dL (0.4-1.0); POTASSIUM 3.9 mmol/L (3.5-5.0)
[2022-05-23] MEDS: SENNA 8.6 MG TABLET PO SCH ×2 (09:02→20:52)
[2022-05-23] MEDS: MULTIVITAMIN W/MINERALS TABLET PO SCH (09:02)
[2022-05-23] MEDS: QUEtiapine 25 MG TABLET PO SCH ×2 (09:02→20:52)
[2022-05-23] MEDS: DEXTROSE 5% 1,000 ML IV SCH ×2 (09:07→22:57)
[2022-05-23] MEDS: cefTRIAXone 2 GM in SODIUM CHLORIDE 0.9% MINIBAG 100 ML IV SCH (09:07)
--- NOTE | 2022-05-23 16:06 | PROVIDER PROGRESS NOTE ---
Subjective - Prog Note Date Prog Note Date: 05/23/22 Prog Note Time: 16:05 - Subjective Subjective: This elderly female who is usually a patient, in spite of her dementia, that is ambulatory, interactive, and speaks. She can usually do a few words and is understandable. But at this point in time her words are not understandable. She is not able to get up. She is not eating. Her CAT scan is indeterminant. She has loss of kelley-white matter differen tiation in the anterior left frontal lobe. Findings could indicate age- indeterminate infarct versus artifact. What ever the cause is, this woman is not waking up to her baseline. She continues to be high per natremia, hyperchloremic. That started yesterday and continues today. She is on D5 norm al saline. That was started on the eighth and continued until today. She is satting at 100% on room air. She is afebrile. Vital signs are relatively normal. Today her systolic has been as high as 157. Current Medications - Current Medications Current Medications: Active Medications Acetaminophen (Acetaminophen 325 Mg Tablet) 650 mg PO Q4HR PRN PRN Reason: Pain 1 to 4, or Fever Al Hydroxide/Mg Hydroxide (Mag Hydrox/Al Hydrox/Simeth 30 Ml Udc) 30 ml PO Q4H PRN PRN Reason: Heartburn Bisacodyl (Bisacodyl 10 Mg Supp) 10 mg [place] DAILY PRN PRN Reason: Constipation Ceftriaxone Sodium 2 gm/ (Sodium Chloride) 100 mls @ 200 mls/hr IV DAILY [facility] Last Admin: 05/23/22 09:07 Dose: 200 mls/hr Dextrose/Sodium Chloride (D5.45ns) 1,000 mls @ 83.333 mls/hr IV .Q12H [facility] Last Infusion: 05/23/22 09:07 Dose: Infused Dextrose (D5w) 1,000 mls @ 83.333 mls/hr IV .Q12H [facility] Last Admin: 05/23/22 09:07 Dose: 83.333 mls/hr Multi-Ingredient Ointment (Zinc Oxide 20% Oint 30 Gm Tube) 1 applic TOP PRN PRN PRN Reason: Skin Care Last Admin: 05/23/22 03:21 Dose: 1 applic Multivitamins/Minerals (Multivitamin W/Minerals Tablet) 1 tab PO DAILYWM [facility] Last Admin: 05/23/22 09:02 Dose: Not Given Ondansetron HCl (Ondansetron 4 Mg/2 Ml Vial) 4 mg IVP Q6HR PRN PRN Reason: Nausea / Vomiting Quetiapine Fumarate (Quetiapine 25 Mg Tablet) 25 mg PO BID [facility] Last Admin: 05/23/22 09:02 Dose: Not Given Senna (Senna 8.6 Mg Tablet) 8.6 mg PO HS [facility] Last Admin: 05/22/22 21:07 Dose: 8.6 mg Senna (Senna 8.6 Mg Tablet) 17.2 mg PO DAILY [facility] Last Admin: 05/23/22 09:02 Dose: Not Given Sodium Chloride (Sodium Chloride Flush 0.9% 10 Ml Syringe) 10 ml IVP PRN PRN PRN Reason: NEEDED PER PROVIDER ORDERS Last Admin: 05/22/22 11:06 Dose: 10 ml Sodium Chloride (Sodium Chloride Flush 0.9% 10 Ml Syringe) 10 ml IVP 0100,0900,1700 [facility] Last Admin: 05/23/22 09:02 Dose: Not Given Acetaminophen [Tylenol] 650 mg PO Q6H PRN 09/13/21 Loperamide [Imodium] 2 mg PO QID PRN 09/13/21 Magnesium Hydroxide [Milk of Magnesia] 30 ml PO DAILY PRN 09/13/21 QUEtiapine [SEROquel] 25 mg PO BID 09/13/21 acetaZOLAMIDE [Diamox] 250 mg PO TID 05/20/22 Sennosides/Docusate Sodium [Senna Plus 8.6-50 mg Tablet] 1 tab PO DAILY PRN 05/21/22 Objective - Vital Signs/Intake & Output Reviewed Vital Signs: Yes Vital Signs: Vital Signs x48h Temp Pulse Resp BP Pulse Ox 05/23/22 11:57 36.8 C 88 18 157/97 H 97 Intake & Output: Intake & Output 05/20/22 05/21/22 05/22/22 05/23/22 23:59 23:59 23:59 23:59 Intake Total 1100 3086.667 2314.374 833.959 Output Total 600 750 Balance 1100 3086.667 1714.374 83.959 - Objective General Appearance: positive: No acute distress (Gaunt appearing elderly female for sharp skeletal bone structure visible through bilateral temporal wasting,), Other (She is sleeping, opens her eyes to my voice, but she does not look at me. She stares at the ceiling. She is nonverbal.) Eyes Bilateral: positive: PERRL, EOMI ENT: positive: No signs of dehydration Neck: positive: No JVD. negative: Stiff neck Respiratory: positive: No respiratory distress. negative: Wheezes, Rales, Rhonchi Cardiovascular: positive: Regular rate & rhythm, Systolic murmur Abdomen: positive: Non-tender, No organomegaly, Nml bowel sounds, No distention Skin: positive: Warm, Dry Extremities: positive: No pedal edema Neurologic/Psychiatric: positive: CN's nml (2-12), Other (Nonverbal. Eyes are open. Nurse does report spontaneous vocalization but none of it makes sense.). negative: Motor nml - Lab Results Fish Bones: 05/23/22 04:46 05/23/22 04:46 Other Labs: Lab Results x24hrs 05/23/22 05/23/22 05/23/22 Range/Units 04:46 04:46 04:46 WBC 12.3 H (4.8-10.8) x10^3/uL RBC 3.70 L (4.20-5.40) 10^6/uL Hgb 11.3 L (12.0-16.0) g/dL Hct 36.2 L (37.0-47.0) % MCV 97.8 (81.0-99.0) fL MCH 30.5 (27.0-31.0) pg MCHC 31.2 L (32.0-36.0) g/dL RDW 14.4 (12.0-15.0) % Plt Count 35 L* (130-450) 10^3/uL MPV 11.8 H (7.9-10.8) fL Neut # (Auto) 10.2 H (1.5-6.6) 10^3/uL Lymph # (Auto) 0.8 L (1.5-3.5) 10^3/uL [place] # (Auto) 1.1 H (0.0-1.0) 10^3/uL Eos # (Auto) 0.0 (0.0-0.7) 10^3/uL Baso # (Auto) 0.1 (0.0-0.1) 10^3/uL Absolute Nucleated RBC 0.00 x10^3/uL Nucleated RBC % 0.0 /100WBC Sodium 149 H (135-145) mmol/L Potassium 3.9 (3.5-5.0) mmol/L Chloride 122 H* (101-111) mmol/L Carbon Dioxide 22 (21-32) mmol/L Anion Gap 5.0 L (6-13) BUN 43 H (6-20) mg/dL Creatinine 1.4 H (0.4-1.0) mg/dL Estimated GFR (MDRD) 36 L (>89) Glucose 105 H (70-100) mg/dL Calcium 7.5 L (8.5-10.3) mg/dL B-Natriuretic Peptide 707 H (5-100) pg/mL ABX Reporting Has patient been on IV antibiotics over the past 48 hours?: Yes Sepsis Event Note (H) - Evaluation Current Stage of Sepsis: Sepsis Possible source of Sepsis: positive: Genitourinary - Sepsis Criteria Sepsis Criteria: Recorded Heart Rate greater than 90 bpm, Respiratory: Increasing oxygen requirements, NIGHT WAREHOUSE SELECTOR: altered consciousness (unrelated to primary neuro pathology), Hematologic: platelets < 100,000; INR > 1.5, or a PTT>60 seconds Assessment/Plan - Problem List (1) SSS (sick sinus syndrome) 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 She also went into new Afib at a controlled rate of 80-90. She also had a 3 sec pause while in Afib.Is she has not been receiving any rate lowering drugs. She was not on any in the outpatient setting and she is not on any while here. Plan: A pacemaker would be indicated, but with her wishes for comfort-focused care, no plan for a pacemaker. She is not a candidate for anticoagulant due to low plt count currently, and risk of falls, unless she will not return to what we were told was her usual independant and walking ability. Also, if she indeed had a recent stroke, there would be risk for hemorrhagic conversion. (2) E coli bacteremia Impression: On 05/21, 2 of 2 blood cultures have returned showing growth and the PCR identification shows E. coli. It is sensitive to Rocephin. Plan: Continue with ceftriaxone at the increased dose, up from 1 g daily to 2 g daily since 05/22. Today is Day #4 (2) Sepsis Assessment/Plan: Patient had sepsis criteria including tachycardia, low platelet count of 77, new altered mental status on top of her usual mental w/ dementia, and a urinary tract infection source was apparent. By 05/22 her tachycardia had resolved, but her white blood count has worsened from 8.4, up to 18.2, Platelet count has worsened from 77 down to 46 and further down to 34, and she was still severely obtunded A repeat lactic acid level was checked and we checked for DIC by ordering a fibrinogen level, to see if she has worsening sepsis, both were not worsened. Today her WBC has come down to 12.3 Plan: Continue to treat with IV fluids Continue empiric IV antibiotics Await blood and urine cultures to adjust antibiotics Will get STAT head CT today, concerned for brain bleed, given the persistent o btundation and the new low plt count>> the result showed no bleed, but a stroke was seen, unknown duration (3) UTI (urinary tract infection) Conclusion/Plan: The patient had blood culture and urine culture sent off from the ED. I reviewed her urinalysis which was very abnormal normal showing WBCs and bacteria, nitrites and leukocyte esterase Plan: I am continuing ceftriaxone. She is day #4 for UTI causing sepsis. (4) AMS (altered mental status) Conclusion/Plan: 05/22 she opened her eyes for her nurse when she was touched. She did pass a swallow screen by the RN. However, she is not eating. She will occasionally clamped on her jaw and does not want anything put in her mouth. She did the same for me today. She opens her eyes but no meaningful eye contact. Blank stare. We have description of her behavior from the memory care center, which was that she was interactive, talking, eating 3 days before the admission. Therefore this is a significant change in her mental stat. 05/[address] was done as we were concerned for brain bleed, given the persistent obtundation and the new low plt count>> the result showed no bleed, but a stroke was seen, unknown duration. It is not acute. I did think of the combination of acute kidney injury, thrombocytopenia, altered mental status as possibly TTP. But this patient does not have previous history of diarrhea, Shigella, E. coli diarrhea. No blood in her stool. She does not have any abdominal pain. I am not seeing any purpura on physical exam. In updating the patient's daughter, Ms. Hayward, today, she tells me that they were already considering hospice for mom. Over the last few months she is deteriorated enough that the quality of her life was at its lowest point ever. They had actually called hospice but this admission occurred before they could make actual formal orders for hospice. Plan: I will let social work and case management know. They can track down which hospice organization was called and we will follow through with that. The daughter would like us to complete antibiotic therapy, and from there, transition her back to home place with comfort measures only. Ms. Hayward says that she will also update the rest of her family. I will do add on LDH for this am's labs and have called the lab to draw for [id number] activity. (5) Dementia Conclusion/Plan: Plan: We will resume her Seroquel when she is able to swallow (6) Cachexia Conclusion/Plan: The patient had skin tenting and sunken eyes which could be consistent with dehydration from no oral intake for 3 days prior to adm, but she appears to have underlying cachexia as well. There is no POLST in the chart but the daughter's discussion with the ED provider indicated that no aggressive measures should be undertaken, comfort is the goal, daughter okayed IV fluids and IV antibiotics Plan: Hospice orders Focus on comfort measures once she is discharged. (7) Tachycardia Conclusion/Plan: Resolved With starting IV hydration and antibiotic Despite having no fever documented, she was tachycardic at admission This may be a result of volume depletion, pain, or from possibly missing her heart rate-slowing medications since she was not taking in her diet for 2-1/2 days Pharmacy has reconciled her med list and she is not on any rate lowering drugs at her [facility] Plan: Remain on telemetry
--- NOTE | 2022-05-23 22:55 | PROVIDER PROGRESS NOTE ---
Hospitalist Cross-cover Note - Cross-Cover Note Cross-Cover Note: Message from RN: ADITI: Pt converted to A-fib (rate 104-140s), no known history of A-fib. Pt is DNR. Per pt's daughter, she doesn't want any aggressive treatment, comfort is the goal for pt. Thank you. Chart reviewed, pt w A fib noted on tele yesterday also w episode of 3 sec pause. No pacemaker due to conservative measures and goals of care. Will avoid rate control at this time given pause earlier, notify if hypotensive/hemodynamic instability. Discussed with RN, BP and HR currently stable.
[2022-05-24] MEDS: SODIUM CHLORIDE FLUSH 0.9% 10 ML SYRINGE IVP SCH ×3 (02:45→21:29)
[2022-05-24] MEDS: ZINC OXIDE 20% OINT 30 GM TUBE TOP PRN (04:50)
[2022-05-24 05:28] LABS: BASOPHILS % (AUTO) 0.3 %; EOSINOPHILS % (AUTO) 0.5 %; HCT - HEMATOCRIT 42.1 % (37.0-47.0); HGB - HEMOGLOBIN 13.4 g/dL (12.0-16.0); LYMPHOCYTES % (AUTO) 10.4 %; MEAN CORPUSCULAR HEMOGLOBIN 30.8 pg (27.0-31.0); MEAN CORPUSCULAR HGB CONC 31.8 g/dL (32.0-36.0); MEAN CORPUSCULAR VOLUME 96.8 fL (81.0-99.0); MEAN PLATELET VOLUME 12.3 fL (7.9-10.8); MONOCYTES % (AUTO) 10.6 %; PLT - PLATELET COUNT 39 10^3/uL (130-450); RED BLOOD COUNT 4.35 10^6/uL (4.20-5.40); RED CELL DISTRIBUTION WIDTH 13.9 % (12.0-15.0)
[2022-05-24 05:31] LABS: ABNORMAL LYMPHS % (MANUAL) 0 %
[2022-05-24 05:42] LABS: CALCIUM 7.5 mg/dL (8.5-10.3); CREATININE 1.2 mg/dL (0.4-1.0); POTASSIUM 3.6 mmol/L (3.5-5.0)
[2022-05-24 05:51] LABS: BAND NEUTROPHILS % (MANUAL) 1 %; LYMPHOCYTES # (MANUAL) 1.2 10^3/uL (1.5-3.5); LYMPHOCYTES % (MANUAL) 9 %; MONOCYTES # (MANUAL) 0.9 10^3/uL (0.0-1.0); NEUTROPHILS # (MANUAL) 10.9 10^3/uL (1.5-6.6)
[2022-05-24 05:52] LABS: DIFFERENTIAL COMMENT MANUAL DIFFERENTIAL; PLATELET ESTIMATE, MANUAL DECREASED (<130,000) (NORMAL); PLATELET MORPHOLOGY NORMAL APPEARANCE (NORMAL); RBC MORPHOLOGY (MULTIPLE) NORMAL APPEARANCE (NORMAL); WBC MORPHOLOGY (MULTIPLE) NORMAL APPEARANCE (NORMAL)
[2022-05-24] MEDS: SENNA 8.6 MG TABLET PO SCH ×2 (09:30→21:28)
[2022-05-24] MEDS: QUEtiapine 25 MG TABLET PO SCH ×2 (09:30→21:28)
[2022-05-24] MEDS: MULTIVITAMIN W/MINERALS TABLET PO SCH (09:30)
[2022-05-24] MEDS: cefTRIAXone 2 GM in SODIUM CHLORIDE 0.9% MINIBAG 100 ML IV SCH (09:35)
[2022-05-24] MEDS: DEXTROSE 5% 1,000 ML IV SCH (12:49)
--- NOTE | 2022-05-24 19:52 | PROVIDER PROGRESS NOTE ---
Subjective - Prog Note Date Prog Note Date: 05/24/22 Prog Note Time: 20:03 - Subjective Subjective: Unchanged. Lays on her back. Eyes open. Unresponsive. Refusing to eat. If you put anything in her mouth she clamped her lips shut and turns her face away. Current Medications - Current Medications Current Medications: Active Medications Acetaminophen (Acetaminophen 325 Mg Tablet) 650 mg PO Q4HR PRN PRN Reason: Pain 1 to 4, or Fever Al Hydroxide/Mg Hydroxide (Mag Hydrox/Al Hydrox/Simeth 30 Ml Udc) 30 ml PO Q4H PRN PRN Reason: Heartburn Bisacodyl (Bisacodyl 10 Mg Supp) 10 mg IN DAILY PRN PRN Reason: Constipation Ceftriaxone Sodium 2 gm/ (Sodium Chloride) 100 mls @ 200 mls/hr IV DAILY [facility] Last Admin: 05/24/22 09:35 Dose: 200 mls/hr Dextrose (D5w) 1,000 mls @ 83.333 mls/hr IV .Q12H [facility] Last Admin: 05/24/22 12:49 Dose: 83.333 mls/hr Multi-Ingredient Ointment (Zinc Oxide 20% Oint 30 Gm Tube) 1 applic TOP PRN PRN PRN Reason: Skin Care Last Admin: 05/24/22 04:50 Dose: 1 applic Multivitamins/Minerals (Multivitamin W/Minerals Tablet) 1 tab PO DAILYWM [facility] Last Admin: 05/24/22 09:30 Dose: Not Given Ondansetron HCl (Ondansetron 4 Mg/2 Ml Vial) 4 mg IVP Q6HR PRN PRN Reason: Nausea / Vomiting Quetiapine Fumarate (Quetiapine 25 Mg Tablet) 25 mg PO BID [facility] Last Admin: 05/24/22 09:30 Dose: Not Given Senna (Senna 8.6 Mg Tablet) 8.6 mg PO HS [facility] Last Admin: 05/23/22 20:52 Dose: 8.6 mg Senna (Senna 8.6 Mg Tablet) 17.2 mg PO DAILY [facility] Last Admin: 05/24/22 09:30 Dose: Not Given Sodium Chloride (Sodium Chloride Flush 0.9% 10 Ml Syringe) 10 ml IVP PRN PRN PRN Reason: NEEDED PER PROVIDER ORDERS Last Admin: 05/22/22 11:06 Dose: 10 ml Sodium Chloride (Sodium Chloride Flush 0.9% 10 Ml Syringe) 10 ml IVP 0100,0900,1700 [facility] Last Admin: 05/24/22 09:31 Dose: Not Given Acetaminophen [Tylenol] 650 mg PO Q6H PRN 09/13/21 Loperamide [Imodium] 2 mg PO QID PRN 09/13/21 Magnesium Hydroxide [Milk of Magnesia] 30 ml PO DAILY PRN 09/13/21 QUEtiapine [SEROquel] 25 mg PO BID 09/13/21 acetaZOLAMIDE [Diamox] 250 mg PO TID 05/20/22 Sennosides/Docusate Sodium [Senna Plus 8.6-50 mg Tablet] 1 tab PO DAILY PRN 05/21/22 Objective - Vital Signs/Intake & Output Reviewed Vital Signs: Yes Vital Signs: Vital Signs x48h Temp Pulse Pulse Resp BP BP Pulse Ox 05/24/22 15:58 36.9 C 83 20 131/73 H 93 05/24/22 12:04 36.6 C 90 18 142/81 H 92 Intake & Output: Intake & Output 05/21/22 05/22/22 05/23/22 05/24/22 23:59 23:59 23:59 23:59 Intake Total 3086.667 2314.374 8966.143 7373 Output Total 600 1000 700 Balance 3086.667 1714.374 993.959 300 - Objective General Appearance: positive: No acute distress, Other (Gaunt elderly female, silent. She does have her eyes open, and does respond to pain. But uncomm unicative.) Eyes Bilateral: positive: PERRL (Left pupil slightly smaller than right.), EOMI ENT: positive: Dry mucous membranes Neck: positive: No JVD. negative: Stiff neck Respiratory: positive: No respiratory distress. negative: Wheezes, Rales, Rhonchi Cardiovascular: positive: Irregularly irregular, Systolic murmur Abdomen: positive: Non-tender, No organomegaly, Nml bowel sounds, No distention Skin: positive: Warm, Dry, Pallor Extremities: positive: Pedal edema - Lab Results Fish Bones: 05/24/22 05:15 05/24/22 05:15 Other Labs: Lab Results x24hrs 05/24/22 05/24/22 Range/Units 05:15 05:15 WBC 13.0 H (4.8-10.8) x10^3/uL RBC 4.35 (4.20-5.40) 10^6/uL Hgb 13.4 (12.0-16.0) g/dL Hct 42.1 (37.0-47.0) % MCV 96.8 (81.0-99.0) fL MCH 30.8 (27.0-31.0) pg MCHC 31.8 L (32.0-36.0) g/dL RDW 13.9 (12.0-15.0) % Plt Count 39 L (130-450) 10^3/uL MPV 12.3 H (7.9-10.8) fL Neut # (Auto) Not Reportable Lymph # (Auto) Not Reportable [place] # (Auto) Not Reportable Eos # (Auto) Not Reportable Baso # (Auto) Not Reportable Absolute Nucleated RBC Not Reportable Total Counted 100 Band Neuts % (Manual) 1 (0 - 10) % Abnorm Lymph % (Manual) 0 % Nucleated RBC % Not Reportable Neutrophils # (Manual) 10.9 H (1.5-6.6) 10^3/uL Lymphocytes # (Manual) 1.2 L (1.5-3.5) 10^3/uL Monocytes # (Manual) 0.9 (0.0-1.0) 10^3/uL Eosinophils # (Manual) 0.0 (0-0.7) 10^3/uL Basophils # (Manual) 0.0 (0-0.1) 10^3/uL Differential Comment MANUAL DIFFERENTIAL WBC Morphology NORMAL APPEARANCE (NORMAL) Platelet Estimate DECREASED (<130,000) (NORMAL) Platelet Morphology NORMAL APPEARANCE (NORMAL) RBC Morph Micro Appear NORMAL APPEARANCE (NORMAL) Sodium 144 (135-145) mmol/L Potassium 3.6 (3.5-5.0) mmol/L Chloride 118 H (101-111) mmol/L Carbon Dioxide 23 (21-32) mmol/L Anion Gap 3.0 L (6-13) BUN 31 H (6-20) mg/dL Creatinine 1.2 H (0.4-1.0) mg/dL Estimated GFR (MDRD) 43 L (>89) Glucose 127 H (70-100) mg/dL Calcium 7.5 L (8.5-10.3) mg/dL ABX Reporting Has patient been on IV antibiotics over the past 48 hours?: Yes Sepsis Event Note (H) - Evaluation Current Stage of Sepsis: Sepsis Possible source of Sepsis: positive: Genitourinary - Sepsis Criteria Sepsis Criteria: Recorded Heart Rate greater than 90 bpm, Respiratory: Increasing oxygen requirements, WATCH AND CLOCK REPAIRER: altered consciousness (unrelated to primary neuro pathology), Hematologic: platelets < 100,000; INR > 1.5, or a PTT>60 seconds Assessment/Plan - Problem List (1) Hypernatremia Impression: with hyperchloremia due to NS fluids. I changed her to D5 last night And sodium went from 149-144. Chloride went from 122-118. 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 She also went into new Afib at a controlled rate of 80-90. She also had a 3 sec pause while in Afib.Is she has not been receiving any rate lowering drugs. She was not on any in the outpatient setting and she is not on any while here. She went back into sinus rhythm. And then in the retirement village manager hours of today, she went back into atrial fibrillation again .No RVR. No symptoms. Telehealth was contacted as an FYI. Plan: A pacemaker would be indicated, but with her wishes for comfort-focused care, no plan for a pacemaker. She is not a candidate for anticoagulant due to low plt count currently, and risk of falls, unless she will not return to what we were told was her usual independant and walking ability. Also, if she indeed had a recent stroke, there would be risk for hemorrhagic conversion. (3) E coli bacteremia Impression: On 05/21, 2 of 2 blood cultures have returned showing growth and the PCR identi fication shows E. coli. It is sensitive to Rocephin. Plan: Continue with ceftriaxone at the increased dose, up from 1 g daily to 2 g daily since 05/22. Today is Day #5/ (4) Sepsis Assessment/Plan: Patient had sepsis criteria including tachycardia, low platelet count of 77, new altered mental status on top of her usual mental w/ dementia, and a urinary tract infection source was apparent. By 05/22 her tachycardia had resolved, but her white blood count has worsened from 8.4, up to 18.2, Platelet count has worsened from 77 down to 46 and further down to 34, and she was still severely obtunded A repeat lactic acid level was checked and we checked for DIC by ordering a fibrinogen level, to see if she has worsening sepsis, both were not worsened. A STAT head CT was done, concerned for brain bleed, given the persistent obtundation and the new low plt count>> the result showed no bleed, but a stroke was seen, unknown duration Today her WBC went back up slightly to 13. Plan: Continue to treat with IV fluids Continue IV antibiotics for 7 days (5) UTI (urinary tract infection) Conclusion/Plan: The patient had blood culture and urine culture sent off from the ED. I reviewed her urinalysis which was very abnormal normal showing WBCs and bacteria, nitrites and leukocyte esterase Plan: I am continuing ceftriaxone. She is day #5/7 for UTI causing sepsis. (6) AMS (altered mental status) Conclusion/Plan: 05/22 she opened her eyes for her nurse when she was touched. She did pass a swallow screen by the RN. However, she is not eating. She will occasionally clamped on her jaw and does not want anything put in her mouth. She did the same for me today. She opens her eyes but no meaningful eye contact. Elin stare. We have description of her behavior from [facility], which was that she was interactive, talking, eating 3 days before the admission. Therefore this is a significant change in her mental stat. 05/[address] was done as we were concerned for brain bleed, given the persistent obtundation and the new low plt count>> the result showed no bleed, but a stroke was seen, unknown duration. It is not acute. I did think of the combination of acute kidney injury, thrombocytopenia, altered mental status as possibly TTP. But this patient does not have previous history of diarrhea, Shigella, E. coli diarrhea. No blood in her stool. She does not have any abdominal pain. I am not seeing any purpura on physical exam.LDH is normal.Low probability of TTP In updating the patient's daughter, Ms. Hayward on 05/23, she tells me that they were already considering hospice for mom. Over the last few months she is deteriorated enough that the quality of her life was at its lowest point ever. They had actually called hospice but this admission occurred before they could make actual formal orders for hospice. I discussed her case at multiple disciplinary rounds today. Shannon from hospice was attending. Shannon let me know that would be hospice was the organization contacted. They would be able to open her up to hospice when she is discharged from here. Plan: Hospice at discharge. Discharge is tentatively planned for Sunday (today is Sunday) (7) Dementia Conclusion/Plan: Plan: We will resume her Seroquel when she is able to swallow (8) Cachexia Conclusion/Plan: The patient had skin tenting and sunken eyes which could be consistent with dehydration from no oral intake for 3 days prior to adm, but she appears to have underlying cachexia as well. There is no POLST in the chart but the daughter's discussion with the ED provider indicated that no aggressive measures should be undertaken, comfort is the goal, daughter okayed IV fluids and IV antibiotics Plan: Hospice has been ordered. Focus on comfort measures once she is discharged. (9) Tachycardia Conclusion/Plan: Resolved With starting IV hydration and antibiotic Despite having no fever documented, she was tachycardic at admission This may be a result of volume depletion, pain, or from possibly missing her heart rate-slowing medications since she was not taking in her diet for 2-1/2 days Pharmacy has reconciled her med list and she is not on any rate lowering drugs at her group home facility Plan: stop tele and change vitals from q4 to q8h
[2022-05-25] MEDS: SODIUM CHLORIDE FLUSH 0.9% 10 ML SYRINGE IVP SCH ×3 (00:49→16:57)
[2022-05-25] MEDS: DEXTROSE 5% 1,000 ML IV SCH ×2 (01:14→16:52)
[2022-05-25] MEDS: cefTRIAXone 2 GM in SODIUM CHLORIDE 0.9% MINIBAG 100 ML IV SCH (09:48)
[2022-05-25] MEDS: MULTIVITAMIN W/MINERALS TABLET PO SCH (12:41)
[2022-05-25] MEDS: QUEtiapine 25 MG TABLET PO SCH ×2 (12:41→21:49)
[2022-05-25] MEDS: SENNA 8.6 MG TABLET PO SCH ×2 (12:42→21:49)
--- NOTE | 2022-05-25 16:22 | PROVIDER PROGRESS NOTE ---
Assessment/Plan - Problem List (1) AMS (altered mental status) Qualifiers: Altered mental status type: persistent vegetative state Qualified Code(s): R40.3 - Persistent vegetative state Assessment/Plan: Patient is nonverbal, not responsive to stimulus or instructions. Appears to be physically comfortable and in no distress or pain. Plan is currently working towards hospice placement. - Current Meds Current Meds: Current Medications Generic Name Dose Route Start Last Admin Trade Name Freq PRN Reason Stop Dose Admin Ceftriaxone Sodium 2 gm/ 100 mls @ 200 mls/hr 05/22/22 09:00 05/25/22 09:48 Sodium Chloride IV 200 mls/hr DAILY [facility] Administration Dextrose 1,000 mls @ 83.333 mls/hr 05/23/22 08:00 05/25/22 01:14 D5w IV 83.333 mls/hr .Q12H [facility] Administration Multi-Ingredient Ointment 1 applic 05/21/22 15:55 05/24/22 04:50 Zinc Oxide 20% Oint 30 Gm Tube TOP 1 applic PRN PRN Administration Skin Care Multivitamins/Minerals 1 tab 05/23/22 08:00 05/25/22 12:41 Multivitamin W/Minerals Tablet PO Not Given DAILYWM [facility] Quetiapine Fumarate 25 mg 05/20/22 21:00 05/25/22 12:41 Quetiapine 25 Mg Tablet PO Not Given BID [facility] Senna 8.6 mg 05/20/22 21:00 05/24/22 21:28 Senna 8.6 Mg Tablet PO 8.6 mg HS [facility] Administration Senna 17.2 mg 05/21/22 09:00 05/25/22 12:42 Senna 8.6 Mg Tablet PO Not Given DAILY [facility] Sodium Chloride 10 ml 05/20/22 18:29 05/22/22 11:06 Sodium Chloride Flush 0.9% 10 Ml Syringe IVP 10 ml PRN PRN Administration NEEDED PER PROVIDER ORDERS Sodium Chloride 10 ml 05/21/22 01:00 05/25/22 12:42 Sodium Chloride Flush 0.9% 10 Ml Syringe IVP Not Given 0100,0900,1700 [facility] - Lab Result Fish Bone Diagrams: 05/24/22 05:15 05/24/22 05:15 - Additional Planning Condition/Complexity: Stable Subjective - Subjective Patient Reports: Other (Patient does not respond) Objective Vital Signs: Vital Signs - 24 hr 05/24/22 05/25/22 23:05 08:02 Temperature 36.8 C 36.8 C Heart Rate [ 75 78 Brachial] Respiratory 16 24 Rate Blood Pressure 133/82 H 135/62 H [Right Brachial artery] O2 Saturation 93 93 Oxygen O2 Source Room air I&O (Last 24 Hrs): Intake and Output Totals x24h 05/23/22 05/24/22 05/25/22 23:59 23:59 23:59 Intake Total 3006.112 4122.108 163.892 Output Total 1000 800 650 Balance 980.809 8239.108 -486.108 General: Other (Nonverbal, no distress) HEENT: Atraumatic Neuro: Disoriented Cardiovascular: Regular rate, No murmurs Respiratory: No respiratory distress Abdomen: Soft Extremities: No clubbing, No cyanosis - Results Results: Laboratory Results WBC 13.0 x10^3/uL (4.8-10.8) H 05/24/22 05:15 RBC 4.35 10^6/uL (4.20-5.40) 05/24/22 05:15 Hgb 13.4 g/dL (12.0-16.0) 05/24/22 05:15 Hct 42.1 % (37.0-47.0) 05/24/22 05:15 MCV 96.8 fL (81.0-99.0) 05/24/22 05:15 MCH 30.8 pg (27.0-31.0) 05/24/22 05:15 MCHC 31.8 g/dL (32.0-36.0) L 05/24/22 05:15 RDW 13.9 % (12.0-15.0) 05/24/22 05:15 Plt Count 39 10^3/uL (130-450) L 05/24/22 05:15 MPV 12.3 fL (7.9-10.8) H 05/24/22 05:15 Neut # (Auto) Not Reportable 05/24/22 05:15 Lymph # (Auto) Not Reportable 05/24/22 05:15 [place] # (Auto) Not Reportable 05/24/22 05:15 Eos # (Auto) Not Reportable 05/24/22 05:15 Baso # (Auto) Not Reportable 05/24/22 05:15 Absolute Nucleated RBC Not Reportable 05/24/22 05:15 Total Counted 100 05/24/22 05:15 Band Neuts % (Manual) 1 % (0-10) 05/24/22 05:15 Abnorm Lymph % (Manual) 0 % 05/24/22 05:15 Metamyelocytes % 3 % (-0) H 05/21/22 09:04 Nucleated RBC % Not Reportable 05/24/22 05:15 Neutrophils # (Manual) 10.9 10^3/uL (1.5-6.6) H 05/24/22 05:15 Lymphocytes # (Manual) 1.2 10^3/uL (1.5-3.5) L 05/24/22 05:15 Monocytes # (Manual) 0.9 10^3/uL (0.0-1.0) 05/24/22 05:15 Eosinophils # (Manual) 0.0 10^3/uL (0-0.7) 05/24/22 05:15 Basophils # (Manual) 0.0 10^3/uL (0-0.1) 05/24/22 05:15 Differential Comment MANUAL DIFFERENTIAL 05/24/22 05:15 WBC Morphology NORMAL APPEARANCE (NORMAL) 05/24/22 05:15 Platelet Estimate DECREASED (<130,000) (NORMAL) 05/24/22 05:15 Platelet Morphology NORMAL APPEARANCE (NORMAL) 05/24/22 05:15 RBC Morph Micro Appear NORMAL APPEARANCE (NORMAL) 05/24/22 05:15 Fibrinogen 854 mg/dL (220-496) H* 05/21/22 17:16 Sodium 144 mmol/L (135-145) 05/24/22 05:15 Potassium 3.6 mmol/L (3.5-5.0) 05/24/22 05:15 Chloride 118 mmol/L (101-111) H 05/24/22 05:15 Carbon Dioxide 23 mmol/L (21-32) 05/24/22 05:15 Anion Gap 3.0 (6-13) L 05/24/22 05:15 BUN 31 mg/dL (6-20) H 05/24/22 05:15 Creatinine 1.2 mg/dL (0.4-1.0) H 05/24/22 05:15 Estimated GFR (MDRD) 43 (>89) L 05/24/22 05:15 Glucose 127 mg/dL (70-100) H 05/24/22 05:15 Lactic Acid 1.3 mmol/L (0.5-2.2) 05/21/22 17:16 Calcium 7.5 mg/dL (8.5-10.3) L 05/24/22 05:15 Phosphorus 1.6 mg/dL (2.5-4.6) L 05/22/22 04:37 Magnesium 2.3 mg/dL (1.7-2.8) 05/22/22 04:37 Total Bilirubin 0.7 mg/dL (0.2-1.0) 05/20/22 13:23 AST 72 IU/L (10-42) H 05/20/22 13:23 ALT 49 IU/L (10-60) 05/20/22 13:23 Alkaline Phosphatase 177 IU/L (42-121) H 05/20/22 13:23 Lactate Dehydrogenase 141 IU/L (91-225) 05/23/22 04:46 B-Natriuretic Peptide 707 pg/mL (5-100) H 05/23/22 04:46 Total Protein 6.4 g/dL (6.7-8.2) L 05/20/22 13:23 Albumin 3.0 g/dL (3.2-5.5) L 05/20/22 13:23 Globulin 3.4 g/dL (2.1-4.2) 05/20/22 13:23 Albumin/Globulin Ratio 0.9 (1.0-2.2) L 05/20/22 13:23 Lipase 22 U/L (22-51) 05/20/22 13:23 Urine Color YELLOW 05/20/22 13:08 Urine Clarity SL. CLOUDY (CLEAR) 05/20/22 13:08 Urine pH 5.5 PH (5.0-7.5) 05/20/22 13:08 Ur Specific [place] 1.020 (1.002-1.030) 05/20/22 13:08 Urine Protein TRACE mg/dL (NEGATIVE) 05/20/22 13:08 Urine Glucose (UA) NEGATIVE mg/dL (NEGATIVE) 05/20/22 13:08 Urine Ketones NEGATIVE mg/dL (NEGATIVE) 05/20/22 13:08 Urine Occult Blood SMALL (NEGATIVE) H 05/20/22 13:08 Urine Nitrite POSITIVE (NEGATIVE) H 05/20/22 13:08 Urine Bilirubin NEGATIVE (NEGATIVE) 05/20/22 13:08 Urine Urobilinogen 0.2 (NORMAL) E.U./dL (NORMAL) 05/20/22 13:08 Ur Leukocyte Esterase TRACE (NEGATIVE) H 05/20/22 13:08 Urine RBC 11-25 /HPF (0-5) H 05/20/22 13:08 Urine WBC 11-25 /HPF (0-5) H 05/20/22 13:08 Ur Squamous Epith Cells RARE Squamous (<= Few) 05/20/22 13:08 Urine Bacteria Moderate /HPF (None Seen) H 05/20/22 13:08 Ur Microscopic Review INDICATED 05/20/22 13:08 Urine Culture Comments INDICATED 05/20/22 13:08 Nasal Adenovirus (PCR) NOT DETECTED 05/20/22 13:10 Nasal B. parapertussis DNA (PCR) NOT DETECTED 05/20/22 13:10 Nasal Coronavir 229E PCR NOT DETECTED 05/20/22 13:10 Nasal Coronavir HKU1 PCR NOT DETECTED 05/20/22 13:10 Nasal Coronavir NL63 PCR NOT DETECTED 05/20/22 13:10 Nasal Coronavir OC43 PCR NOT DETECTED 05/20/22 13:10 Nasal Enterovir/Rhinovir PCR NOT DETECTED 05/20/22 13:10 Nasal Influenza B PCR NOT DETECTED 05/20/22 13:10 Nasal Influenza A PCR NOT DETECTED 05/20/22 13:10 Nasal Parainfluen 1 PCR NOT DETECTED 05/20/22 13:10 Nasal Parainfluen 2 PCR NOT DETECTED 05/20/22 13:10 Nasal Parainfluen 3 PCR NOT DETECTED 05/20/22 13:10 Nasal Parainfluen 4 PCR NOT DETECTED 05/20/22 13:10 Nasal RSV (PCR) NOT DETECTED 05/20/22 13:10 Nasal B.pertussis DNA PCR NOT DETECTED 05/20/22 13:10 Nasal C.pneumoniae (PCR) NOT DETECTED 05/20/22 13:10 Clement Human Metapneumo PCR NOT DETECTED 05/20/22 13:10 Nasal M.pneumoniae (PCR) NOT DETECTED 05/20/22 13:10 Nasal SARS-CoV-2 (PCR) NOT DETECTED 05/20/22 13:10 Sepsis Event Note (H) - Evaluation Current Stage of Sepsis: Sepsis Possible source of Sepsis: positive: Genitourinary - Sepsis Criteria Sepsis Criteria: Recorded Heart Rate greater than 90 bpm, Respiratory: Increasing oxygen requirements, PLANNING DIVISION SUPERINTENDENT: altered consciousness (unrelated to primary neuro pathology), Hematologic: platelets < 100,000; INR > 1.5, or a PTT>60 seconds ABX Reporting Has patient been on IV antibiotics over the past 48 hours?: No Current Medications - Current Medications Current Medications: Active Medications Generic Name Dose Route Start Last Admin Trade Name Freq PRN Reason Stop Dose Admin Acetaminophen 650 mg 05/20/22 18:29 Acetaminophen 325 Mg Tablet PO Q4HR PRN Pain 1 to 4, or Fever Al Hydroxide/Mg Hydroxide 30 ml 05/20/22 18:30 Mag Hydrox/Al Hydrox/Simeth 30 Ml Udc PO Q4H PRN Heartburn Bisacodyl 10 mg 05/20/22 18:30 Bisacodyl 10 Mg Supp DE DAILY PRN Constipation Ceftriaxone Sodium 2 gm/ 100 mls @ 200 mls/hr 05/22/22 09:00 05/25/22 09:48 Sodium Chloride IV 200 mls/hr DAILY [facility] Administration Dextrose 1,000 mls @ 83.333 mls/hr 05/23/22 08:00 05/25/22 01:14 D5w IV 83.333 mls/hr .Q12H [facility] Administration Multi-Ingredient Ointment 1 applic 05/21/22 15:55 05/24/22 04:50 Zinc Oxide 20% Oint 30 Gm Tube TOP 1 applic PRN PRN Administration Skin Care Multivitamins/Minerals 1 tab 05/23/22 08:00 05/25/22 12:41 Multivitamin W/Minerals Tablet PO Not Given DAILYWM [facility] Ondansetron HCl 4 mg 05/20/22 18:29 Ondansetron 4 Mg/2 Ml Vial IVP Q6HR PRN Nausea / Vomiting Quetiapine Fumarate 25 mg 05/20/22 21:00 05/25/22 12:41 Quetiapine 25 Mg Tablet PO Not Given BID [facility] Senna 8.6 mg 05/20/22 21:00 05/24/22 21:28 Senna 8.6 Mg Tablet PO 8.6 mg HS [facility] Administration Senna 17.2 mg 05/21/22 09:00 05/25/22 12:42 Senna 8.6 Mg Tablet PO Not Given DAILY [facility] Sodium Chloride 10 ml 05/20/22 18:29 05/22/22 11:06 Sodium Chloride Flush 0.9% 10 Ml Syringe IVP 10 ml PRN PRN Administration NEEDED PER PROVIDER ORDERS Sodium Chloride 10 ml 05/21/22 01:00 05/25/22 12:42 Sodium Chloride Flush 0.9% 10 Ml Syringe IVP Not Given 0100[facility]0900,[facility] Acetaminophen [Tylenol] 650 mg PO Q6H PRN 09/13/21 Loperamide [Imodium] 2 mg PO QID PRN 09/13/21 Magnesium Hydroxide [Milk of Magnesia] 30 ml PO DAILY PRN 09/13/21 QUEtiapine [SEROquel] 25 mg PO BID 09/13/21 acetaZOLAMIDE [Diamox] 250 mg PO TID 05/20/22 Sennosides/Docusate Sodium [Senna Plus 8.6-50 mg Tablet] 1 tab PO DAILY PRN 11/04
[2022-05-26] MEDS: SODIUM CHLORIDE FLUSH 0.9% 10 ML SYRINGE IVP SCH ×3 (01:28→10:49)
[2022-05-26] MEDS: DEXTROSE 5% 1,000 ML IV SCH (06:56)
[2022-05-26 07:27] VITALS: BP 139/79
--- NOTE | 2022-05-26 08:34 | Discharge Plan ---
Discharge Plan for SNF / [facility] - Discharge Plan And Transition Orders Problem Reviewed?: Yes Disposition: 50 Hospice/Home DC/Xfer Condition: Stable Allergies and Adverse Reactions: Allergies Allergy/AdvReac Type Severity Reaction Status Date / Time codeine Allergy Unknown Verified 05/20/22 12:58 Plan of Treatment: Patient is being discharged to hospice. - SNF / [facility] Transition Orders Admit to (Facility): Hospice Discharge Diagnosis: Bacteremia - stable Sepsis - resolved Dementia - stable Medicare Certification Statement: I certify that Post Hospital fci care is medically necessary on a continuing basis for any of the conditions for which she/he is receiving care during hospitalization. Notify PCP of admission and forward orders to primary provider for signature. Other Notification Orders: Call PCP immediately if patient develops dyspnea, chest pain/tightness or edema. Additional Bowel Program Orders: If no BM after 2 days, nurse may give M.O.M. 30ml PO PRN and/or ducolax Supp 1 NC and/or KEO 250mg P.O., and/or senna 1-2 tabs PO. On day 3 nurse may give repeat above order until residents constipation is resolved. Medication Orders: PLEASE REFER TO THE DISCHARGE MEDICATION LIST. Insulin Orders?: No - Diet Texture: Mech soft
--- NOTE | 2022-05-26 08:40 | DISCHARGE SUMMARY ---
"Discharge Summary Admit Date: 05/20/22 Discharge Date: 05/26/22 Discharging Provider: Dr Jean-Paul Joy Code Status: Do Not Attempt Resuscitation Condition at Discharge: Stable Discharge Disposition: 50 Hospice/Home DC/Xfer - DIAGNOSES Admission Diagnoses: Sepsis - POA, resolved UTI - Resolved Altered Mental Status POA - unchanged Tachycadria - Resolved Dementia - Unchanged Cachexia - Unchanged Discharge Diagnoses with Status of Each Condition: Hypernatremia - Resolved Bacteremia - Stable UTI - resolved Altered Mental Status - Unchanged Dementia - Unchanged Cachexia - Unchanged Tachycardia - Resolved - HPI History of Present Illness: This is an 82-year-old female with a history of dementia, on Seroquel. She lives in a memory care facility. She is normally interactive and walks and is independent. For the last 2 days she has been less interactive and eating and drinking less. Last night she had a fever of 101 Fahrenheit. This morning she was much less interactive and had nothing to eat or drink and was therefore sent to the ER from the [facility]. The patient was not febrile in our ED, but was found to have tachycardia, obtundation, a left shift on her CBC and abnormal urinalysis. The ED provider spoke to the daughter who reviewed that she did want treatment for her mother with IV fluids and antibiotics. There is an upcoming appointment to have the pt start being followed with Palliative Care, the daughter said. The ED provider reached out to me on the Hospitalist team and we discussed this patient. The patient will be admitted to treat sepsis from a UTI. There is no PLST in the chart. The daughter does not want aggressive measures, comfort is the goal. Therefore CODE STATUS will be DNR. - CONSULTS | PROCEDURES Consultations: Hospice, Palliative Care - HOSPITAL COURSE Hospital Course: Problem List (1) Hypernatremia Impression: with hyperchloremia due to NS fluids. After D5 went from 149-144. Chloride went from 122-118. 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 She also went into new Afib at a controlled rate of 80-90. She also had a 3 sec pause while in Afib.Is she has not been receiving any rate lowering drugs. She was not on any in the outpatient setting and she is not on any while here. She went back into sinus rhythm. And then in the battery container inspector hours of today, she went back into atrial fibrillation again.No RVR. No symptoms. Telehealth was contacted as an FYI. Plan: A pacemaker would be indicated, but with her wishes for comfort-focused care, no plan for a pacemaker. She is not a candidate for anticoagulant due to low plt count currently, and risk of falls, unless she will not return to what we were told was her usual independant and walking ability. Also, if she indeed had a recent stroke, there would be risk for hemorrhagic conversion. (3) E coli bacteremia Impression: On 05/21, 2 of 2 blood cultures have returned showing growth and the PCR identification shows E. coli. It is sensitive to Rocephin. Plan: Completed ceftriaxone for 7 days (4) Sepsis Assessment/Plan: Patient had sepsis criteria including tachycardia, low platelet count of 77, new altered mental status on top of her usual mental w/ dementia, and a urinary tract infection source was apparent. By 05/22 her tachycardia had resolved, but her white blood count has worsened from 8.4, up to 18.2, Platelet count has worsened from 77 down to 46 and further down to 34, and she was still severely obtunded A repeat lactic acid level was checked and we checked for DIC by ordering a fibrinogen level, to see if she has worsening sepsis, both were not worsened. A STAT head CT was done, concerned for brain bleed, given the persistent obtundation and the new low plt count>> the result showed no bleed, but a stroke was seen, unknown duration (5) UTI (urinary tract infection) Conclusion/Plan: The patient had blood culture and urine culture sent off from the ED. I reviewed her urinalysis which was very abnormal normal showing WBCs and bact eria, nitrites and leukocyte esterase Plan: Completed ceftriaxone UTI causing sepsis. (6) AMS (altered mental status) Conclusion/Plan: 05/22 she opened her eyes for her nurse when she was touched. She did pass a swallow screen by the RN. However, she is not eating. She will occasionally clamped on her jaw and does not want anything put in her mouth. She did the same for me today. She opens her eyes but no meaningful eye contact. Blank stare. We have description of her behavior from the [facility], which was that she was interactive, talking, eating 3 days before the admission. Therefore this is a significant change in her mental stat. 05/[address] was done as we were concerned for brain bleed, given the persistent obtundation and the new low plt count>> the result showed no bleed, but a stroke was seen, unknown duration. It is not acute. I did think of the combination of acute kidney injury, thrombocytopenia, altered mental status as possibly TTP. But this patient does not have previous history of diarrhea, Shigella, E. coli diarrhea. No blood in her stool. She does not have any abdominal pain. I am not seeing any purpura on physical exam.LDH is normal.Low probability of TTP In updating the patient's daughter, Ms. Hayward on 05/23, she tells me that they were already considering hospice for mom. Over the last few months she is deteriorated enough that the quality of her life was at its lowest point ever. They had actually called hospice but this admission occurred before they could make actual formal orders for hospice. I discussed her case at multiple disciplinary rounds today. Shannon from hospice was attending. Shannon let me know that would be hospice was the organization contacted. They would be able to open her up to hospice when she is discharged from here. Plan: Hospice at discharge. (7) Dementia Conclusion/Plan: Plan: We will resume her Seroquel when she is able to swallow (8) Cachexia Conclusion/Plan: The patient had skin tenting and sunken eyes which could be consistent with dehydration from no oral intake for 3 days prior to adm, but she appears to have underlying cachexia as well. Plan: Hospice has been ordered. Focus on comfort measures once she is discharged. (9) Tachycardia Conclusion/Plan: Resolved With starting IV hydration and antibiotic Despite having no fever documented, she was tachycardic at admission This may be a result of volume depletion, pain, or from possibly missing her heart rate-slowing medications since she was not taking in her diet for 2-1/2 days - ALLERGIES Allergies/Adverse Reactions: Allergies Allergy/AdvReac Type Severity Reaction Status Date / Time codeine Allergy Unknown Verified 05/20/22 12:58 - MEDICATIONS Home Medications: Ambulatory Orders Medication Instructions Recorded Confirmed Acetaminophen [Tylenol] 650 mg PO Q6H PRN 09/13/21 05/20/22 QUEtiapine [SEROquel] 25 mg PO BID 09/13/21 05/20/22 Acetaminophen [Tylenol] 650 mg PO Q4HR PRN tab 05/26/22 QUEtiapine [SEROquel] 25 mg PO BID tab 05/26/22 - PHYSICAL EXAM AT DISCHARGE General Appearance: positive: No acute distress Neurologic/Psychiatric: positive: Disoriented to person, Disoriented to place, Disoriented to time, Other (Does not speak) - LABS Result Diagrams: 05/24/22 05:15 05/24/22 05:15 - SEPSIS Current Stage of Sepsis: Sepsis Possible source of Sepsis: Genitourinary Sepsis Criteria: Recorded Heart Rate greater than 90 bpm, Respiratory: Increasing oxygen requirements, [employer]: altered consciousness (unrelated to primary neuro pathology), Hematologic: platelets < 100,000; INR > 1.5, or a PTT>60 seconds - FOLLOW UP Follow Up: N/A - TIME SPENT Time Spent in Discharge (Minutes): 42"
[2022-05-26] MEDS: cefTRIAXone 2 GM in SODIUM CHLORIDE 0.9% MINIBAG 100 ML IV SCH (09:27)
[2022-05-26] MEDS: MULTIVITAMIN W/MINERALS TABLET PO SCH (10:47)
[2022-05-26] MEDS: QUEtiapine 25 MG TABLET PO SCH (10:47)
[2022-05-26] MEDS: SENNA 8.6 MG TABLET PO SCH (10:48)
== END 2022-05-26 12:04 | disposition hospice, home (50) | DRG 872 ==
LOC: EDUNIT# → ED 12:43 → MS2 18:29
PROVIDERS: ADMIT Internal Medicine; ATTEND Family Medicine Sports Medicine
DX: A41.51 Sepsis due to Escherichia coli [E. coli] (principal); N39.0 Urinary tract infection, site not specified; R64 Cachexia; Z20.822 Contact with and (suspected) exposure to COVID-19; Z68.1 Body mass index [BMI] 19.9 or less, adult; R32 Unspecified urinary incontinence; R53.1 Weakness; R63.0 Anorexia; N17.9 Acute kidney failure, unspecified; E87.0 Hyperosmolality and hypernatremia; I49.5 Sick sinus syndrome; I48.91 Unspecified atrial fibrillation; R41.82 Altered mental status, unspecified; F03.90 Unspecified dementia, unspecified severity, without behavioral disturbance, psychotic disturbance, mood disturbance, and anxiety; D69.6 Thrombocytopenia, unspecified; E86.0 Dehydration; R00.0 Tachycardia, unspecified; Z66 Do not resuscitate; E87.8 Other disorders of electrolyte and fluid balance, not elsewhere classified
CPT/HCPCS: 36415; 51701; 70450; 71045; 80048; 80053; 81001; 81599; 83605; 83615; 83690; 83735; 83880; 84100; 85025; 85384; 87040; 87086; 87150; 87181; 87633; 93005; 93306; 99285; A9270; J0131; 81003

== ENCOUNTER 2022-05-26 11:15 | Outpatient (CLI) | payer MEDICARE, MEDICAID | END 2022-05-26 11:16 | disposition home or self-care (01) | LOC: EMS 11:15 | PROVIDERS: ATTEND Specialist | DX: R41.82 Altered mental status, unspecified (principal); F03.90 Unspecified dementia, unspecified severity, without behavioral disturbance, psychotic disturbance, mood disturbance, and anxiety; Z74.01 Bed confinement status | CPT/HCPCS: A0425; A0428 ==